=== PATIENT | female | born 1955 | race Caucasian/White ===

== ENCOUNTER 2018-03-28 02:35 | Emergency (ER) | payer OTHER ==
[~2018-03-28] VITALS: Ht 167.6 cm; Wt 108.9 kg
--- NOTE | 2018-03-28 02:51 | ED.ADGEN ---
Past History Past Medical History: Arthritis, Diabetes, Other Adult General Chief Complaint Chief Complaint ".. I just moved to [place].. I ve been lifting some boxes.. I did hurt my back a month ago.. they did a MRI at .. and said I had some disc disease... they recommended that I ge steroid injections... and follow up with PT on Fri. .. but I went to sleep in my recliner.. and when I woke up.. I could not move.. because of the pain in my low back... and Rt. leg..." HPI HPI 4 Patient is a 62 year old female who presents with acute on chronic back pain. Pt. reports an injury 1 month ago moving boxes. Pt. told she had disc problems. Pt. normally follows with Dr. Tong at for care. Pt. patient reportedly had a MRI 2 weeks ago and recommended physical therapy and steroid injections. Patient's first PT appointment is on when she is coming week. Patient has been moving into her an apartment in [facility]. Patient is localized in the Lt. lumbar sacral area there is some muscle spasms . Radiation down Lt. sciatic nerve root to Lt. gluteal.. There is radiation the pain into Lt sciatica- with straight leg lift. Pt. rates her pain as 100/10. Review of Systems Review of Systems Constitutional: Denies fever or chills [] Eyes: Denies change in visual acuity, redness, or eye pain [] HENT: Denies nasal congestion or sore throat [] Respiratory: Denies cough or shortness of breath [] Cardiovascular: No additional information not addressed in HPI [] GI: Denies abdominal pain, nausea, vomiting, bloody stools or diarrhea [] : Denies dysuria or hematuria [] Musculoskeletal: Complaints of Lt lumbar back pain and sciatica. Integument: Denies rash or skin lesions [] Neurologic: Denies headache, focal weakness or sensory changes [] Endocrine: Denies polyuria or polydipsia [] All other systems were reviewed and found to be within normal limits, except as documented in this note. Family History Family History Noncontributory Current Medications Current Medications Current Medications Medications (Trade) Dose Ordered Sig/Toi Start Time Stop Time Status Last Admin Dose Admin Ketorolac Tromethamine (Toradol 30mg Vial) 30 mg 1X ONCE 2/2/19 03:00 03/28/18 04:44 DC 03/28/18 03:20 30 MG Methylprednisolone Acetate (DEPO-Medrol IM) 40 mg 1X ONCE 03/28/18 03:00 03/28/18 04:44 DC 03/28/18 03:20 40 MG Morphine Sulfate (Morphine 10mg Syringe) 10 mg 1X ONCE 03/28/18 05:00 03/28/18 05:01 DC 03/28/18 05:08 10 MG Ondansetron HCl (Zofran) 8 mg 1X ONCE 03/28/18 07:30 03/28/18 07:35 DC 03/28/18 07:27 8 MG Orphenadrine Citrate (Norflex) 60 mg 1X ONCE 03/28/18 03:00 03/28/18 04:44 DC 03/28/18 03:19 60 MG Prochlorperazine Edisylate (Compazine) 10 mg 1X ONCE 03/28/18 05:00 03/28/18 05:01 Cancel See nursing for home meds Allergies Allergies Allergies Coded Allergies Type Severity Reaction Last Updated Verified metoprolol Allergy Intermediate 03/28/18 Yes No known drug allergies Physical Exam Physical Exam Constitutional: in acute distress, non-toxic appearance. [] HENT: Normocephalic, atraumatic, bilateral external ears normal, oropharynx moist, no oral exudates, nose normal. [] Eyes: PERRLA, EOMI, conjunctiva normal, no discharge. Glasses Neck: Normal range of motion, no tenderness, supple, no stridor. [] Cardiovascular:Heart rate regular rhythm, no murmur [] Lungs & Thorax: Bilateral breath sounds clear to auscultation [] Abdomen: Bowel sounds normal, soft, no tenderness, no masses, no pulsatile masses. Obese. No saddle loss. Skin: Warm, dry, no erythema, no rash. [] Back: Lt. lumbar muscle spasms and tenderness, no CVA tenderness. [] Extremities: Lt leg tenderness sciatic root with SLL, no cyanosis, no clubbing , ROM intact, no edema. [] Neurologic: Alert and oriented X 3, complaints of motor weakness because of severe sciatic pain in Lt. leg,, distal plantar sensory . DTR + 2 patellar. Psychologic: Affect anxious, judgement normal, mood depressed Current Patient Data Vital Signs Vital Signs Date Time Temp Pulse Resp B/P (MAP) Pulse Ox O2 Delivery O2 Flow Rate FiO2 03/28/18 03:00 98.6 87 16 99 Lab Results Laboratory Tests Test 03/28/18 03:20 White Blood Count 9.3 x10^3/uL (4.0-11.0) Red Blood Count 3.57 x10^6/uL (3.50-5.40) Hemoglobin 10.8 g/dL (12.0-15.5) L Hematocrit 32.6 % (36.0-47.0) L Mean Corpuscular Volume 92 fL (79-100) Mean Corpuscular Hemoglobin 30 pg (25-35) Mean Corpuscular Hemoglobin Concent 33 g/dL (31-37) Red Cell Distribution Width 14.4 % (11.5-14.5) Platelet Count 381 x10^3/uL (140-400) Neutrophils (%) (Auto) 63 % (31-73) Lymphocytes (%) (Auto) 24 % (24-48) Monocytes (%) (Auto) 10 % (0-9) H Eosinophils (%) (Auto) 2 % (0-3) Basophils (%) (Auto) 1 % (0-3) Neutrophils # (Auto) 5.8 x10^3uL (1.8-7.7) Lymphocytes # (Auto) 2.3 x10^3/uL (1.0-4.8) Monocytes # (Auto) 0.9 x10^3/uL (0.0-1.1) Eosinophils # (Auto) 0.2 x10^3/uL (0.0-0.7) Basophils # (Auto) 0.1 x10^3/uL (0.0-0.2) Sodium Level 135 mmol/L (136-145) L Potassium Level 4.5 mmol/L (3.5-5.1) Chloride Level 100 mmol/L (98-107) Carbon Dioxide Level 25 mmol/L (21-32) Anion Gap 10 (6-14) Blood Urea Nitrogen 21 mg/dL (7-20) H Creatinine 1.0 mg/dL (0.6-1.0) Estimated GFR (Cockcroft-Gault) 56.0 Glucose Level 121 mg/dL (70-99) H Calcium Level 8.6 mg/dL (8.5-10.1) EKG EKG [] Radiology/Procedures Radiology/Procedures CT of lumbar sacral spine shows no obvious fracture. But does have a ventral epidural discussed extrusion at L4, L5 and S1 causing severe spinal stenosis. Radiology recommended MRI imaging. See formal report.[] Course & Med Decision Making Course & Med Decision Making Pertinent Labs and Imaging studies reviewed. (See chart for details) Discussed presentation, testing and tx. plan with Dr. Matthews- Advised pt. needs to be transfer to hospital with Neuro-surgery and MRI availability. Discussed patient's presentation, testing and current treatment with transfers center at .- accepts pt in transfer to . [] Final Impression Final Impression 1. Acute on Chronic Back Pain 2. Lt. Sciatica[] 3. Severe L4, L5 S1 spinal stenosis- suspect disc extrusion. 4. DM- 121 glu 5. Anemia 10.8 Hgb. Dragon Disclaimer Dragon Disclaimer This electronic medical record was generated, in whole or in part, using a voice recognition dictation system. Dragon Disclaimer This chart was dictated in whole or in part using Voice Recognition software in a busy, high-work load, and often noisy Emergency Department environment. It may contain unintended and wholly unrecognized errors or omissions. Discharge Summary Visit Information Final Diagnosis Problems Medical Problems: (1) Back pain Status: Acute Brief Hospital Course Allergies Allergies Coded Allergies Type Severity Reaction Last Updated Verified metoprolol Allergy Intermediate 03/28/18 Yes Vital Signs Vital Signs Date Time Temp Pulse Resp B/P (MAP) Pulse Ox O2 Delivery O2 Flow Rate FiO2 03/28/18 03:00 98.6 87 16 99 Lab Results Laboratory Tests Test 03/28/18 03:20 White Blood Count 9.3 x10^3/uL (4.0-11.0) Red Blood Count 3.57 x10^6/uL (3.50-5.40) Hemoglobin 10.8 g/dL (12.0-15.5) Hematocrit 32.6 % (36.0-47.0) Mean Corpuscular Volume 92 fL (79-100) Mean Corpuscular Hemoglobin 30 pg (25-35) Mean Corpuscular Hemoglobin Concent 33 g/dL (31-37) Red Cell Distribution Width 14.4 % (11.5-14.5) Platelet Count 381 x10^3/uL (140-400) Neutrophils (%) (Auto) 63 % (31-73) Lymphocytes (%) (Auto) 24 % (24-48) Monocytes (%) (Auto) 10 % (0-9) Eosinophils (%) (Auto) 2 % (0-3) Basophils (%) (Auto) 1 % (0-3) Neutrophils # (Auto) 5.8 x10^3uL (1.8-7.7) Lymphocytes # (Auto) 2.3 x10^3/uL (1.0-4.8) Monocytes # (Auto) 0.9 x10^3/uL (0.0-1.1) Eosinophils # (Auto) 0.2 x10^3/uL (0.0-0.7) Basophils # (Auto) 0.1 x10^3/uL (0.0-0.2) Sodium Level 135 mmol/L (136-145) Potassium Level 4.5 mmol/L (3.5-5.1) Chloride Level 100 mmol/L (98-107) Carbon Dioxide Level 25 mmol/L (21-32) Anion Gap 10 (6-14) Blood Urea Nitrogen 21 mg/dL (7-20) Creatinine 1.0 mg/dL (0.6-1.0) Estimated GFR (Cockcroft-Gault) 56.0 Glucose Level 121 mg/dL (70-99) Calcium Level 8.6 mg/dL (8.5-10.1) Brief Hospital Course Ms. Black is a 62 old female who presented with acute on chronic back pain. Suspect disc extrusion L4,5, and S1[facility] Information Condition at Discharge: Improved Disposition/Orders: D/C to Another Facility Dischare Medications Current Medications Morphine Sulfate (Morphine 10mg Syringe) 10 mg 1X ONCE SQ Last administered on 03/28/18at 03:19; Admin Dose 10 MG; Start 03/28/18 at 03:00; Stop 03/28/18 at 04: 44; Status DC Methylprednisolone Acetate (DEPO-Medrol IM) 40 mg 1X ONCE IM Last administered on 03/28/18at 03:20; Admin Dose 40 MG; Start 03/28/18 at 03:00; Stop 03/28/18 at 04:44; Status DC Orphenadrine Citrate (Norflex) 60 mg 1X ONCE IM Last administered on 03/28/18at 03:19; Admin Dose 60 MG; Start 03/28/18 at 03:00; Stop 03/28/18 at 04:44; Status DC Ketorolac Tromethamine (Toradol 30mg Vial) 30 mg 1X ONCE IM Last administered on 03/28/18at 03:20; Admin Dose 30 MG; Start 03/28/18 at 03:00; Stop 03/28/18 at 04: 44; Status DC Morphine Sulfate (Morphine 10mg Syringe) 10 mg 1X ONCE IM Last administered on 03/28/18at 05:08; Admin Dose 10 MG; Start 03/28/18 at 05:00; Stop 03/28/18 at 05: 01; Status DC Prochlorperazine Edisylate (Compazine) 10 mg 1X ONCE IM Last administered on at 05:08; Admin Dose 10 MG; Start 03/28/18 at 05:00; Stop 03/28/18 at 05:02; Status DC Prochlorperazine Edisylate (Compazine) 10 mg 1X ONCE IM ; Start 03/28/18 at 05: 00; Stop 03/28/18 at 05:01; Status Cancel Ondansetron HCl (Zofran) 4 mg STK-MED ONCE .ROUTE ; Start 03/28/18 at 07:11; Stop 03/28/18 at 07:12; Status DC Ondansetron HCl (Zofran) 8 mg 1X ONCE IV Last administered on 03/28/18at 07:27; Admin Dose 8 MG; Start 03/28/18 at 07:30; Stop 03/28/18 at 07:35; Status DC BRITTANY CONRAD MD Mar 28, 2018 02:51
[2018-03-28] MEDS ORDERED: MORPHINE SULFATE 10 MG/ML SYRINGE. SQ ONE (03:00)
[2018-03-28] MEDS ORDERED: KETOROLAC 30 MG/ML VIAL. IM ONE (03:00)
[2018-03-28] MEDS ORDERED: methylPREDNISolone ACETATE 40 MG/ML VIAL. IM ONE (03:00)
[2018-03-28] MEDS ORDERED: ORPHENADRINE CITRATE 60 MG/2 ML VIAL. IM ONE (03:00)
[2018-03-28 03:33] LABS: BASO # 0.1 x10^3/uL (0.0-0.2); BASO % 1 % (0-3); EOS # 0.2 x10^3/uL (0.0-0.7); EOS % 2 % (0-3); HEMATOCRIT 32.6 % (36.0-47.0); HEMOGLOBIN 10.8 g/dL (12.0-15.5); LYMPH # 2.3 x10^3/uL (1.0-4.8); LYMPH % 24 % (24-48); MEAN CORPUSCULAR HEMOGLOBIN 30 pg (25-35); MEAN CORPUSCULAR HGB CONC 33 g/dL (31-37); MEAN CORPUSCULAR VOLUME 92 fL (79-100); MONO # 0.9 x10^3/uL (0.0-1.1); MONO % 10 % (0-9); NEUT # 5.8 x10^3uL (1.8-7.7); NEUT % 63 % (31-73); PLATELET COUNT 381 x10^3/uL (140-400); RED BLOOD COUNT 3.57 x10^6/uL (3.50-5.40); RED CELL DISTRIBUTION WIDTH 14.4 % (11.5-14.5); WHITE BLOOD COUNT 9.3 x10^3/uL (4.0-11.0)
[2018-03-28 03:40] LABS: CALCIUM 8.6 mg/dL (8.5-10.1); POTASSIUM 4.5 mmol/L (3.5-5.1)
--- NOTE | 2018-03-28 04:30 | RAD ---
CT lumbar spine without contrast PQRS statement: CT scans at this facility use dose reduction including either automated exposure control, iterative reconstructions, and /or weight based radiation dosing via mA and kV modification when appropriate to reduce radiation dose to as low as reasonably achievable. HISTORY: Lower back pain, bulging discs. TECHNIQUE: Helical multiplanar reconstructed noncontrast CT imaging of the lumbar spine was acquired. FINDINGS: Mild lumbar scoliosis. No acute fracture. No pars defect. Aorta and iliac artery calcified plaque. Paraspinal tissues unremarkable. Disc height loss and large disc bulges and facet osteophytes at the lumbar spine with severe spinal canal stenoses L3-L4 and L4-L5. There is a suspected large disc extrusion at the ventral spinal canal between L4-L5 and L5-S1 on sagittal images 31 and on the axial images which could contribute to markedly severe spinal canal stenosis, although a extradural mass or dural based mass cannot be excluded. Moderate to severe neural foraminal stenoses L3-L4 through L5-S1 due to the disc bulges and endplate and facet spurs. IMPRESSION: No acute osseous injury of the lumbar spine. Lumbar disc disease with spinal canal stenoses. Ventral epidural soft tissue density between L4-L5 and L5-S1 likely a large disc extrusion contributing to markedly severe spinal canal stenosis although a soft tissue mass cannot be excluded. This could be further assessed with MR imaging. Electronically signed by: Blane Dexter MD (03/28/2018 4:26 AM) [facility]
[2018-03-28] MEDS ORDERED: MORPHINE SULFATE 10 MG/ML SYRINGE. IM ONE (05:00)
[2018-03-28] MEDS ORDERED: PROCHLORPERAZINE 10 MG/2 ML VIAL. IM ONE ×2 (05:00)
[2018-03-28] MEDS ORDERED: ONDANSETRON PF 4 MG/2 ML VIAL. ONE (07:11)
[2018-03-28 07:12] VITALS: BP 106/70
[2018-03-28] MEDS ORDERED: ONDANSETRON PF 4 MG/2 ML VIAL. IV ONE (07:30)
== END 2018-03-28 07:45 | disposition short-term general hospital (02) ==
LOC: ER 02:35
DX: M54.42 Lumbago with sciatica, left side (principal); M48.07 Spinal stenosis, lumbosacral region; G89.29 Other chronic pain; D64.9 Anemia, unspecified; E11.9 Type 2 diabetes mellitus without complications; M19.90 Unspecified osteoarthritis, unspecified site; Z88.8 Allergy status to other drugs, medicaments and biological substances
CPT/HCPCS: 36415; 72131; 80048; 82947; 85025; 96372; 96374; 99285; J0780; J1030; J1885; J2270; J2360; J2405

== ENCOUNTER → 2018-07-24 | Outpatient (CLI) | payer OTHER | END | disposition home or self-care (01) | LOC: LAB 08:30 | PROVIDERS: ATTEND Internal Medicine Hematology & Oncology | DX: C50.411 Malignant neoplasm of upper-outer quadrant of right female breast (principal); R19.7 Diarrhea, unspecified; Z17.0 Estrogen receptor positive status [ER+] | CPT/HCPCS: 36415; 87493 ==

== ENCOUNTER 2018-08-11 22:10 | Emergency (ER) | payer OTHER ==
[~2018-08-11] VITALS: Ht 167.6 cm; Wt 108.9 kg
--- NOTE | 2018-08-11 22:44 | PHYS DOC ---
Past History Past Medical History: Arthritis, Diabetes, Other Drug Use: None Adult General Chief Complaint Chief Complaint: NAUSEA/VOMITING/DIARRHEA HPI HPI 63-year-old female presents via EMS with nausea, vomiting and diarrhea. The patient had her second round of chemotherapy 4 days ago. Today, she has had several episodes of vomiting and diarrhea. She took 8 mg of Zofran lower for 4 arrival and has had no further vomiting. She talked to her oncologist and he recommended she come to the emergency room for IV fluids and basic labs. That is why she has come to the ED. Patient is feeling a bit better at this time. Her last episode of vomiting was 2 and half hours ago. Her last diarrhea was 2 hours ago. Her recent white counts have been quite low. They were 1500 on Friday, but this is an improvement from previous. He denies fever or chills. Review of Systems Review of Systems Constitutional: Denies fever or chills. General fatigue. [] Eyes: Denies change in visual acuity, redness, or eye pain [] HENT: Denies nasal congestion or sore throat [] Respiratory: Denies cough or shortness of breath [] Cardiovascular: No additional information not addressed in HPI [] GI: Denies abdominal pain. Nausea, vomiting, diarrhea [] : Denies dysuria or hematuria [] Musculoskeletal: Denies back pain or joint pain [] Integument: Denies rash or skin lesions [] Neurologic: Denies headache, focal weakness or sensory changes [] Endocrine: Denies polyuria or polydipsia [] All other systems were reviewed and found to be within normal limits, except as documented in this note. Current Medications Current Medications Current Medications Medications (Trade) Dose Ordered Sig/Toi Start Time Stop Time Status Last Admin Dose Admin Sodium Chloride 1,000 ml @ 1,000 mls/hr 1X ONCE 08/11/18 22:45 08/11/18 23:44 Allergies Allergies Allergies Coded Allergies Type Severity Reaction Last Updated Verified metoprolol Allergy Intermediate 03/28/18 Yes Physical Exam Physical Exam Constitutional: Well developed, well nourished, no acute distress, non-toxic appearance. [] HENT: Normocephalic, atraumatic, bilateral external ears normal, oropharynx moist, no oral exudates, nose normal. [] Eyes: PERRLA, EOMI, conjunctiva normal, no discharge. [] Neck: Normal range of motion, no tenderness, supple, no stridor. [] Cardiovascular:Heart rate regular rhythm, no murmur [] Lungs & Thorax: Bilateral breath sounds clear to auscultation [] Abdomen: Bowel sounds normal, soft, no tenderness, no masses, no pulsatile masses. [] Skin: Warm, dry, no erythema, no rash. [] Back: No tenderness, no CVA tenderness. [] Extremities: No tenderness, no cyanosis, no clubbing, ROM intact, no edema. [] Neurologic: Alert and oriented X 3, normal motor function, normal sensory function, no focal deficits noted. [] Psychologic: Affect normal, judgement normal, mood normal. [] EKG EKG [] Radiology/Procedures Radiology/Procedures [] Course & Med Decision Making Course & Med Decision Making Pertinent Labs and Imaging studies reviewed. (See chart for details) The patient's labs are unremarkable except for an elevated creatinine 1.5. Her previous creatinines were normal. We have given her 2L of normal saline in the ED. the patient has not been able to give us much urine. She still continues to have some watery diarrhea. Her only able to perform a urine dip and it was positive for nitrate. I will discharge the patient with a prescription for Macrobid for 5 days. She is stable for discharge at this time. [] Dragon Disclaimer Dragon Disclaimer This electronic medical record was generated, in whole or in part, using a voice recognition dictation system. Departure Departure: Impression: Primary Impression: Nausea, vomiting, and diarrhea Disposition: 01 HOME, SELF-CARE Condition: STABLE Referrals: MARQUISE PHAM MD (PCP) Patient Instructions: Nausea and Vomiting, [id number] Scripts Nitrofurantoin Monohyd/M-Cryst (MACROBID 100 MG CAPSULE) 100 Mg Capsule 1 CAP PO BID for UTI for 5 Days, #10 CAP Prov: LINDY MARTIN DO 08/12/18 LINDY MARTIN DO Aug 11, 2018 22:44
[2018-08-11] MEDS ORDERED: IV NORMAL SALINE 1,000ML 1,000 ML IV ONE (22:45)
[2018-08-11 22:52] LABS: BASO % 1 % (0-3); EOS % 1 % (0-3); HEMATOCRIT 32.2 % (36.0-47.0); HEMOGLOBIN 10.7 g/dL (12.0-15.5); LYMPH # 1.4 x10^3/uL (1.0-4.8); LYMPH % 23 % (24-48); MEAN CORPUSCULAR HEMOGLOBIN 29 pg (25-35); MEAN CORPUSCULAR HGB CONC 33 g/dL (31-37); MEAN CORPUSCULAR VOLUME 88 fL (79-100); MONO # 0.1 x10^3/uL (0.0-1.1); MONO % 2 % (0-9); NEUT # 4.5 x10^3uL (1.8-7.7); NEUT % 73 % (31-73); PLATELET COUNT 214 x10^3/uL (140-400); RED BLOOD COUNT 3.65 x10^6/uL (3.50-5.40); RED CELL DISTRIBUTION WIDTH 13.6 % (11.5-14.5); WHITE BLOOD COUNT 6.1 x10^3/uL (4.0-11.0)
[2018-08-11 23:12] LABS: ALBUMIN 3.3 g/dL (3.4-5.0); CALCIUM 8.9 mg/dL (8.5-10.1); CREATININE 1.5 mg/dL (0.6-1.0); POTASSIUM 4.4 mmol/L (3.5-5.1); TOTAL BILIRUBIN 0.4 mg/dL (0.2-1.0); TOTAL PROTEIN 6.7 g/dL (6.4-8.2)
[2018-08-12] MEDS ORDERED: IV NORMAL SALINE 1,000ML 1,000 ML IV ONE
[2018-08-12 01:33] LABS: BILIRUBIN,URINE NEG (NEG); CLARITY,URINE HAZY; COLOR,URINE YELLOW; GLUCOSE,URINE NEG (NEG)
[2018-08-12 01:34] LABS: NITRITE,URINE POS (NEG); UROBILINOGEN,URINE 0.2 mg/dL (0.2 mg/dL)
[2018-08-12] MEDS ORDERED: NITR100C62 PO (01:39)
[2018-08-12 01:56] VITALS: BP 108/52
== END 2018-08-12 02:03 | disposition home or self-care (01) ==
LOC: ER 22:10
DX: R11.2 Nausea with vomiting, unspecified (principal); R19.7 Diarrhea, unspecified; E11.9 Type 2 diabetes mellitus without complications; M19.90 Unspecified osteoarthritis, unspecified site; Z88.8 Allergy status to other drugs, medicaments and biological substances
CPT/HCPCS: 36415; 80053; 81003; 85025; 96360; 96361; 99284-25; 99285-25; J7030

== ENCOUNTER 2018-09-27 17:58 | Emergency (ER) | payer OTHER ==
[~2018-09-27] VITALS: Ht 167.6 cm; Wt 98.4 kg
[~2018-09-27 17:58] MED LIST: NITR100C62 PO
[2018-09-27] MEDS ORDERED: IV RINGERS SOLUTION,LACTATED 1,000 ML IV SCH (18:08)
--- NOTE | 2018-09-27 18:08 | ED.ADGEN ---
Past History Past Medical History: Anemia, Arthritis, Cancer, Diabetes, Hypertension, Hypotension, Other Past Surgical History: Other Alcohol Use: None Drug Use: None Adult General Chief Complaint Chief Complaint ".. I just so weak... I ve had diarrhea, nausea and vomiting.. the last three days.. I think ... I dehydrated.. I just so weak whine I get up.. and if I get up fast I get dizzy....".. " I have not done any more chemo therapy... for now over a month.. for my two different breast cancers..." HPI HPI Patient is a 63 year old female who presents with above hx and complaints of fatigue, weakness, dizzy, malaise after three days of N/V and diarrhea. Patient denies any intake of bad food. Patient denies any specific ill contacts. Patient denies any travel. Patient is over a month out from her last chemotherapy for her breast cancers. She has had 2 courses of chemotherapy. Patient states she got so sick with the last course she did not want to continue chemotherapy. Patient reportedly has 2 different cell lines of breast cancer. Patient normally follows at for all her care both primary , oncology and chemotherapy. Patient states she becomes very dizzy when she attempts to stand up. Patient lives in her own home. Patient has 2 cats Alisha and Licorice. Review of Systems Review of Systems Constitutional: Subjective fever or chills [] Eyes: Denies change in visual acuity, redness, or eye pain [] HENT: Denies nasal congestion or sore throat [] Respiratory: Denies cough or shortness of breath [] Cardiovascular: No additional information not addressed in HPI [] GI: Generalized abdominal pain, nausea, vomiting, and diarrhea [] : Denies dysuria or hematuria [] Musculoskeletal: Denies back pain or joint pain Has.]generalized fatigue and weakness Integument: Denies rash or skin lesions [] Neurologic: Denies headache, focal weakness or sensory changes [] Endocrine: Denies polyuria or polydipsia [] All other systems were reviewed and found to be within normal limits, except as documented in this note. Family History Family History Noncontributory to current presentation Current Medications Current Medications Current Medications Medications (Trade) Dose Ordered Sig/Toi Start Time Stop Time Status Last Admin Dose Admin Folic Acid (FOLIC ACID SYRINGE for ER) 5 mg STK-MED ONCE 09/27/18 19:41 09/27/18 19:42 DC Heparin Sodium (Porcine) (Hep Lock Adult) 500 unit STK-MED ONCE 09/27/18 23:17 09/27/18 23:18 DC Lactated Ringer's 1,000 ml @ 1,000 mls/hr Q1H 09/27/18 18:08 09/27/18 19:07 DC 09/27/18 19:27 1,000 MLS/HR Magnesium Sulfate 50 ml @ 25 mls/hr 1X ONCE 09/27/18 21:45 09/27/18 23:44 UNV Metronidazole (Flagyl) 500 mg 1X ONCE 09/27/18 22:00 09/27/18 22:11 DC 09/27/18 22:07 500 MG Multivitamins/ Minerals (Infuvite Adult) 10 ml STK-MED ONCE 09/27/18 19:41 09/27/18 19:42 DC Multivitamins/ Minerals 10 ml/ Folic Acid 1 mg/ Thiamine HCl 100 mg/Lactated Ringer's 1,011.2 ml @ 1,000 mls/ hr 1X ONCE 09/27/18 18:15 09/27/18 19:15 DC 09/27/18 19:47 1,000 MLS/HR Oxycodone/ Acetaminophen (Percocet 5/325) 1 tab 1X ONCE 09/27/18 20:15 09/27/18 20:16 DC 09/27/18 20:16 1 TAB Thiamine HCl (Thiamine Vial) 200 mg STK-MED ONCE 09/27/18 19:41 09/27/18 19:42 DC See nursing for home medications Allergies Allergies Allergies Coded Allergies Type Severity Reaction Last Updated Verified metoprolol Allergy Intermediate 03/28/18 Yes Physical Exam Physical Exam Constitutional: in moderately acute distress, ill in appearance. [] HENT: Normocephalic, atraumatic, bilateral external ears normal, oropharynx dry, no oral exudates, nose normal. []Hair loss. Eyes: PERRLA, EOMI, conjunctiva pale, no discharge. Glasses. Neck: Normal range of motion, no tenderness, supple, no stridor. [] Cardiovascular: Tachycardia Heart rate regular rhythm, no murmur [] Lungs & Thorax: Bilateral breath sounds equal at apexes auscultation []Port on right Abdomen: Bowel sounds hyperactive, soft, generalized tenderness, no masses, no pulsatile masses. Obese Skin: Warm, dry, no erythema, no rash. Delay of capillary refill at 3 seconds in fingers Back: No tenderness, no CVA tenderness. [] Extremities: No tenderness, no cyanosis, no clubbing, ROM intact, no edema. [] Neurologic: Alert and oriented X 3, moves all ext. on request, no focal deficits noted. []DTR + 2 patella and brachia. Pt. ambulatory with out problems after fluid bolus- no longer dizzy on standing. Psychologic: Affect anxious, judgement normal, mood normal. [] Current Patient Data Vital Signs Vital Signs Date Time Temp Pulse Resp B/P (MAP) Pulse Ox O2 Delivery O2 Flow Rate FiO2 09/27/18 22:00 80 20 153/106 (122) 98 Room Air 09/27/18 18:05 98.5 Lab Results Laboratory Tests Test 09/27/18 18:10 09/27/18 21:12 White Blood Count 8.0 x10^3/uL (4.0-11.0) Red Blood Count 3.50 x10^6/uL (3.50-5.40) Hemoglobin 10.6 g/dL (12.0-15.5) L Hematocrit 32.4 % (36.0-47.0) L Mean Corpuscular Volume 93 fL (79-100) Mean Corpuscular Hemoglobin 30 pg (25-35) Mean Corpuscular Hemoglobin Concent 33 g/dL (31-37) Red Cell Distribution Width 15.7 % (11.5-14.5) H Platelet Count 306 x10^3/uL (140-400) Neutrophils (%) (Auto) 67 % (31-73) Lymphocytes (%) (Auto) 20 % (24-48) L Monocytes (%) (Auto) 9 % (0-9) Eosinophils (%) (Auto) 3 % (0-3) Basophils (%) (Auto) 1 % (0-3) Neutrophils # (Auto) 5.4 x10^3uL (1.8-7.7) Lymphocytes # (Auto) 1.6 x10^3/uL (1.0-4.8) Monocytes # (Auto) 0.7 x10^3/uL (0.0-1.1) Eosinophils # (Auto) 0.2 x10^3/uL (0.0-0.7) Basophils # (Auto) 0.0 x10^3/uL (0.0-0.2) Prothrombin Time 10.7 SEC (9.4-11.4) Prothrombin Time INR 1.0 (0.9-1.1) PTT 27 SEC (23-33) D-Dimer (Carmen) 0.48 mg/L (0.00-0.50) Sodium Level 138 mmol/L (136-145) Potassium Level 4.3 mmol/L (3.5-5.1) Chloride Level 103 mmol/L (98-107) Carbon Dioxide Level 27 mmol/L (21-32) Anion Gap 8 (6-14) Blood Urea Nitrogen 17 mg/dL (7-20) Creatinine 1.1 mg/dL (0.6-1.0) H Estimated GFR (Cockcroft-Gault) 50.0 Glucose Level 253 mg/dL (70-99) H Lactic Acid Level 1.9 mmol/L (0.4-2.0) Calcium Level 8.7 mg/dL (8.5-10.1) Magnesium Level 1.1 mg/dL (1.8-2.4) L Total Bilirubin 0.4 mg/dL (0.2-1.0) Direct Bilirubin 0.1 mg/dL (0.0-0.2) Aspartate Amino Transferase (AST) 16 U/L (15-37) Alanine Aminotransferase (ALT) 21 U/L (14-59) Alkaline Phosphatase 56 U/L (46-116) Creatine Kinase 30 U/L (26-192) Troponin I Quantitative < 0.017 ng/mL (0-0.055) [id number]-Type Natriuretic Peptide 22 pg/mL (0-124) Total Protein 6.6 g/dL (6.4-8.2) Albumin 3.3 g/dL (3.4-5.0) L Lipase 32 U/L (73-393) L Urine Collection Type Unknown Urine Color Yellow Urine Clarity Clear Urine pH 5.5 Urine Specific Telford 1.020 Urine Protein 30 mg/dl (NEG-TRACE) Urine Glucose (UA) >=1000 mg/dL (NEG) Urine Ketones (Stick) 15 mg/dL (NEG) Urine Blood Neg (NEG) Urine Nitrite Neg (NEG) Urine Bilirubin Neg (NEG) Urine Urobilinogen Dipstick 0.2 mg/dL (0.2 mg/dL) Urine Leukocyte Esterase Neg (NEG) Urine RBC Occ /HPF (0-2) Urine WBC 1-4 /HPF (0-4) Urine Squamous Epithelial Cells Occ /LPF Urine Bacteria Few /HPF (0-FEW) Urine Hyaline Casts Mod /HPF Urine Mucus Mod /LPF Urine Opiates Screen Pos (NEG) Urine Methadone Screen Neg (NEG) Urine Barbiturates Neg (NEG) Urine Phencyclidine Screen Neg (NEG) Urine Amphetamine/Methamphetamine Neg (NEG) Urine Benzodiazepines Screen Neg (NEG) Urine Cocaine Screen Neg (NEG) Urine Cannabinoids Screen Neg (NEG) Urine Ethyl Alcohol Neg (NEG) EKG EKG My interpretation EKG shows a sinus rhythm at 91 bpm. There are some nonspecific contour changes anterior lateral but no findings of acute STEMI with contralateral changes.[] Radiology/Procedures Radiology/Procedures [[place] [address] IMAGING REPORT Signed PATIENT: LUIS BLACK ACCOUNT: [id number] : 1955 LOCATION: ER AGE: 63 SEX: F EXAM STATUS: REG ER ORD. PHYSICIAN: BRITTANY CONRAD MD REASON: breast ca, dyspnea PROCEDURE: CHEST PA & LATERAL EXAM: 1. CHEST 2 VIEWS. 2. ABDOMEN 2 VIEWS. HISTORY: Dyspnea, breast cancer, abdominal pain, weakness. COMPARISON: None. FINDINGS: There are no confluent infiltrates. There is no pneumothorax or pleural effusion. The heart is not enlarged. A right-sided port catheter has its tip in the superior vena cava. There is no pneumoperitoneum. There are no significant air-fluid levels or distended small bowel loops. Changes of anterior abdominal wall repair are noted. There is gas distally. There are moderate degenerative changes of the lumbar spine with a mild dextroscoliosis. IMPRESSION: 1. No confluent infiltrates. 2. No evidence of obstruction. Electronically signed by: Tyler Zhao MD (09/27/2018 7:28 PM) [facility] DICTATED AND SIGNED BY: SHIRA ZHAO MD DATE: 09/27/181927 CC: BRITTANY CONRAD MD; MARQUISE PHAM MD ~][address] [address] IMAGING REPORT Signed PATIENT: LUIS BLACK ACCOUNT: [id number] : 1955 LOCATION: ER AGE: 63 SEX: F EXAM STATUS: REG ER ORD. PHYSICIAN: BRITTANY CONRAD MD REASON: Weakness, dizzy, hx breast ca PROCEDURE: CT HEAD WO CONTRAST EXAM: CT HEAD WITHOUT CONTRAST. HISTORY: Breast cancer, weakness, dizziness. TECHNIQUE: Computed tomography of the head was performed without intravenous contrast. COMPARISON: None. FINDINGS: There is no intracranial hemorrhage. Hypoattenuation within the periventricular white matter indicates mild chronic microangiopathic change. The ventricles are normal in size and position. There are changes of right maxillary sinus decompressive surgery. The temporal bones and orbits are unremarkable. A small osteoma along the outer table of the frontal bone just to the right of midline measures 8 x 3 mm. There are no suspicious calvarial lesions. A sebaceous cyst in the left parietal scalp measures 1 cm. IMPRESSION: 1. No acute intracranial findings. *One or more of the following individualized dose reduction techniques were utilized for this examination: 1. Automated exposure control. 2. Adjustment of the mA and/or kV according to patient size. 3. Use of iterative reconstruction technique. Electronically signed by: Tyler Zhao MD (09/27/2018 7:14 PM) [facility] DICTATED AND SIGNED BY: SHIRA ZHAO MD DATE: 09/27/181913 CC: BRITTANY CONRAD MD; MARQUISE PHAM MD ~ IMAGING REPORT Signed PATIENT: LUIS BLACK ACCOUNT: [id number] : 1955 LOCATION: ER AGE: 63 SEX: F EXAM STATUS: REG ER ORD. PHYSICIAN: BRITTANY CONRAD MD REASON: breast ca, abdomen pain, weakness PROCEDURE: ABDOMEN SUPINE & UPRIGHT EXAM: 1. CHEST 2 VIEWS. 2. ABDOMEN 2 VIEWS. HISTORY: Dyspnea, breast cancer, abdominal pain, weakness. COMPARISON: None. FINDINGS: There are no confluent infiltrates. There is no pneumothorax or pleural effusion. The heart is not enlarged. A right-sided port catheter has its tip in the superior vena cava. There is no pneumoperitoneum. There are no significant air-fluid levels or distended small bowel loops. Changes of anterior abdominal wall repair are noted. There is gas distally. There are moderate degenerative changes of the lumbar spine with a mild dextroscoliosis. IMPRESSION: 1. No confluent infiltrates. 2. No evidence of obstruction. Electronically signed by: Tyler Zhao MD (09/27/2018 7:28 PM) [facility] DICTATED AND SIGNED BY: SHIRA ZHAO MD DATE: 09/27/181927 CC: BRITTANY CONRAD MD; MARQUISE PHAM MD ~ Course & Med Decision Making Course & Med Decision Making Pertinent Labs and Imaging studies reviewed. (See chart for details)- Discussed options of further tx. with p.t. Pt. declines admit at this time.. States she feels so much better after fluid bolus and Mag. IV. Will cover for C-diff. Must follow up stool cultures. Return if any concerns. [] Final Impression Final Impression 1. Nausea, Vomiting and Diarrhea 2. One month out from last chemotherapy 3. Two different types of breast cancer 4. DM[] 253 5. Elevated Creat. 1.1 6. Hypomagnesium 1.1 7. Anemia 10.6 Hgb. 8. Dehydration- casts noted in urine Dragon Disclaimer Dragon Disclaimer This electronic medical record was generated, in whole or in part, using a voice recognition dictation system. Discharge Summary Visit Information Final Diagnosis Problems Medical Problems: (1) Diarrhea Status: Acute (2) Nausea & vomiting Status: Acute Brief Hospital Course Allergies Allergies Coded Allergies Type Severity Reaction Last Updated Verified metoprolol Allergy Intermediate 03/28/18 Yes Vital Signs Vital Signs Date Time Temp Pulse Resp B/P (MAP) Pulse Ox O2 Delivery O2 Flow Rate FiO2 09/27/18 22:00 80 20 153/106 (122) 98 Room Air 09/27/18 18:05 98.5 Lab Results Laboratory Tests Test 09/27/18 18:10 09/27/18 21:12 White Blood Count 8.0 x10^3/uL (4.0-11.0) Red Blood Count 3.50 x10^6/uL (3.50-5.40) Hemoglobin 10.6 g/dL (12.0-15.5) Hematocrit 32.4 % (36.0-47.0) Mean Corpuscular Volume 93 fL (79-100) Mean Corpuscular Hemoglobin 30 pg (25-35) Mean Corpuscular Hemoglobin Concent 33 g/dL (31-37) Red Cell Distribution Width 15.7 % (11.5-14.5) Platelet Count 306 x10^3/uL (140-400) Neutrophils (%) (Auto) 67 % (31-73) Lymphocytes (%) (Auto) 20 % (24-48) Monocytes (%) (Auto) 9 % (0-9) Eosinophils (%) (Auto) 3 % (0-3) Basophils (%) (Auto) 1 % (0-3) Neutrophils # (Auto) 5.4 x10^3uL (1.8-7.7) Lymphocytes # (Auto) 1.6 x10^3/uL (1.0-4.8) Monocytes # (Auto) 0.7 x10^3/uL (0.0-1.1) Eosinophils # (Auto) 0.2 x10^3/uL (0.0-0.7) Basophils # (Auto) 0.0 x10^3/uL (0.0-0.2) Prothrombin Time 10.7 SEC (9.4-11.4) Prothromb Time International Ratio 1.0 (0.9-1.1) Activated Partial Thromboplast Time 27 SEC (23-33) D-Dimer (Carmen) 0.48 mg/L (0.00-0.50) Sodium Level 138 mmol/L (136-145) Potassium Level 4.3 mmol/L (3.5-5.1) Chloride Level 103 mmol/L (98-107) Carbon Dioxide Level 27 mmol/L (21-32) Anion Gap 8 (6-14) Blood Urea Nitrogen 17 mg/dL (7-20) Creatinine 1.1 mg/dL (0.6-1.0) Estimated GFR (Cockcroft-Gault) 50.0 Glucose Level 253 mg/dL (70-99) Lactic Acid Level 1.9 mmol/L (0.4-2.0) Calcium Level 8.7 mg/dL (8.5-10.1) Magnesium Level 1.1 mg/dL (1.8-2.4) Total Bilirubin 0.4 mg/dL (0.2-1.0) Direct Bilirubin 0.1 mg/dL (0.0-0.2) Aspartate Amino Transf (AST/SGOT) 16 U/L (15-37) Alanine Aminotransferase (ALT/SGPT) 21 U/L (14-59) Alkaline Phosphatase 56 U/L (46-116) Creatine Kinase 30 U/L (26-192) Troponin I Quantitative < 0.017 ng/mL (0-0.055) [id number]-Type Natriuretic Peptide 22 pg/mL (0-124) Total Protein 6.6 g/dL (6.4-8.2) Albumin 3.3 g/dL (3.4-5.0) Lipase 32 U/L (73-393) Urine Collection Type Unknown Urine Color Yellow Urine Clarity Clear Urine pH 5.5 Urine Specific Telford 1.020 Urine Protein 30 mg/dl (NEG-TRACE) Urine Glucose (UA) >=1000 mg/dL (NEG) Urine Ketones (Stick) 15 mg/dL (NEG) Urine Blood Neg (NEG) Urine Nitrite Neg (NEG) Urine Bilirubin Neg (NEG) Urine Urobilinogen Dipstick 0.2 mg/dL (0.2 mg/dL) Urine Leukocyte Esterase Neg (NEG) Urine RBC Occ /HPF (0-2) Urine WBC 1-4 /HPF (0-4) Urine Squamous Epithelial Cells Occ /LPF Urine Bacteria Few /HPF (0-FEW) Urine Hyaline Casts Mod /HPF Urine Mucus Mod /LPF Urine Opiates Screen Pos (NEG) Urine Methadone Screen Neg (NEG) Urine Barbiturates Neg (NEG) Urine Phencyclidine Screen Neg (NEG) Urine Amphetamine/Methamphetamine Neg (NEG) Urine Benzodiazepines Screen Neg (NEG) Urine Cocaine Screen Neg (NEG) Urine Cannabinoids Screen Neg (NEG) Urine Ethyl Alcohol Neg (NEG) Brief Hospital Course Ms. Black is a 63 old female who presented with N/V/D and hx two separate lines of breast cancer. Pt. improved with hydration. Elects to be discharge home. Discharge Information Condition at Discharge: Improved, Stable Disposition/Orders: D/C to Home Dischare Medications Current Medications Lactated Ringer's 1,000 ml @ 1,000 mls/hr Q1H IV Last administered on 09/27/18at 19:27; Admin Dose 1,000 MLS/HR; Start 09/27/18 at 18:08; Stop 09/27/18 at 19:07; Status DC Multivitamins/ Minerals 10 ml/ Folic Acid 1 mg/ Thiamine HCl 100 mg/Lactated Ringer's 1,011.2 ml @ 1,000 mls/ hr 1X ONCE IV Last administered on 09/27/18at 19:47; Admin Dose 1,000 MLS/HR; Start 09/27/18 at 18:15; Stop 09/27/18 at 19:15; Status DC Thiamine HCl (Thiamine Vial) 200 mg STK-MED ONCE IV ; Start 09/27/18 at 19:41; Stop 09/27/18 at 19:42; Status DC Multivitamins/ Minerals (Infuvite Adult) 10 ml STK-MED ONCE IV ; Start 09/27/18 at 19:41; Stop 09/27/18 at 19:42; Status DC Folic Acid (FOLIC ACID SYRINGE for ER) 5 mg STK-MED ONCE IV ; Start 09/27/18 at 19:41; Stop 09/27/18 at 19:42; Status DC Oxycodone/ Acetaminophen (Percocet 5/325) 1 tab 1X ONCE PO Last administered on 09/27/18at 20:16; Admin Dose 1 TAB; Start 09/27/18 at 20:15; Stop 09/27/18 at 20:16; Status DC Magnesium Sulfate 50 ml @ 25 mls/hr 1X ONCE IV Last administered on 09/27/18at 21:45; Admin Dose 25 MLS/HR; Start 09/27/18 at 22:00; Stop 09/27/18 at 23:29; Status DC Magnesium Sulfate 50 ml @ 25 mls/hr 1X ONCE IV ; Start 09/27/18 at 21:45; Stop 09/27/18 at 23:44; Status UNV Metronidazole (Flagyl) 500 mg 1X ONCE PO Last administered on 09/27/18at 22:07; Admin Dose 500 MG; Start 09/27/18 at 22:00; Stop 09/27/18 at 22:11; Status DC Heparin Sodium (Porcine) (Hep Lock Adult) 500 unit STK-MED ONCE IV ; Start 09/27/18 at 23:17; Stop 09/27/18 at 23:18; Status DC Active Scripts Active Flagyl (Metronidazole) 500 Mg Tablet 500 Mg PO TID 10 Days Percocet 5-325 Mg Tablet (Oxycodone Hcl/Acetaminophen) 1 Each Tablet 1 Tab PO PRN Q6HRS PRN Zofran (Ondansetron Hcl) 8 Mg Tablet 8 Mg PO QIDPRN PRN Macrobid 100 Mg Capsule (Nitrofurantoin Monohyd/M-Cryst) 100 Mg Capsule 1 Cap PO BID 5 Days Dragon Disclaimer This chart was dictated in whole or in part using Voice Recognition software in a busy, high-work load, and often noisy Emergency Department environment. It may contain unintended and wholly unrecognized errors or omissions. BRITTANY CONRAD MD Sep 27, 2018 18:08
[2018-09-27] MEDS ORDERED: MVI, ADULT NO.4 WITH VIT K 10 ML, FOLIC ACID SYRINGE for ER 1 MG, THIAMINE INJ 100 MG i... IV ONE ×4 (18:15)
--- NOTE | 2018-09-27 18:28 | EKG ---
[address] [address] Test Date: 2018-09-27 Test Time: 18:27:40 Pat Name: LUIS BOWER Department: Room: Gender: F Awning Frame Maker: LAUREN : 1955 Requested By: BRITTANY CONRAD Order Number: [id number] Reading MD: Measurements Intervals [place] Rate: 91 P: 35 WI: 144 QRS: 4 QRSD: 72 T: 61 QT: 344 QTc: 425 Interpretive Statements SINUS RHYTHM QRS(T) CONTOUR ABNORMALITY CONSIDER ANTEROLATERAL MYOCARDIAL DAMAGE POSSIBLY ABNORMAL ECG RI6.01 No previous ECG available for comparison
[2018-09-27 18:43] LABS: BASO % 1 % (0-3); EOS # 0.2 x10^3/uL (0.0-0.7); EOS % 3 % (0-3); HEMATOCRIT 32.4 % (36.0-47.0); HEMOGLOBIN 10.6 g/dL (12.0-15.5); LYMPH # 1.6 x10^3/uL (1.0-4.8); LYMPH % 20 % (24-48); MEAN CORPUSCULAR HEMOGLOBIN 30 pg (25-35); MEAN CORPUSCULAR HGB CONC 33 g/dL (31-37); MEAN CORPUSCULAR VOLUME 93 fL (79-100); MONO # 0.7 x10^3/uL (0.0-1.1); MONO % 9 % (0-9); NEUT # 5.4 x10^3uL (1.8-7.7); NEUT % 67 % (31-73); PLATELET COUNT 306 x10^3/uL (140-400); RED CELL DISTRIBUTION WIDTH 15.7 % (11.5-14.5)
[2018-09-27 19:04] LABS: ALBUMIN 3.3 g/dL (3.4-5.0); CALCIUM 8.7 mg/dL (8.5-10.1); CREATININE 1.1 mg/dL (0.6-1.0); DIRECT BILIRUBIN 0.1 mg/dL (0.0-0.2); MAGNESIUM 1.1 mg/dL (1.8-2.4); POTASSIUM 4.3 mmol/L (3.5-5.1); TOTAL BILIRUBIN 0.4 mg/dL (0.2-1.0); TOTAL PROTEIN 6.6 g/dL (6.4-8.2)
--- NOTE | 2018-09-27 19:17 | RAD ---
EXAM: CT HEAD WITHOUT CONTRAST. HISTORY: Breast cancer, weakness, dizziness. TECHNIQUE: Computed tomography of the head was performed without intravenous contrast. COMPARISON: None. FINDINGS: There is no intracranial hemorrhage. Hypoattenuation within the periventricular white matter indicates mild chronic microangiopathic change. The ventricles are normal in size and position. There are changes of right maxillary sinus decompressive surgery. The temporal bones and orbits are unremarkable. A small osteoma along the outer table of the frontal bone just to the right of midline measures 8 x 3 mm. There are no suspicious calvarial lesions. A sebaceous cyst in the left parietal scalp measures 1 cm. IMPRESSION: 1. No acute intracranial findings. *One or more of the following individualized dose reduction techniques were utilized for this examination: 1. Automated exposure control. 2. Adjustment of the mA and/or kV according to patient size. 3. Use of iterative reconstruction technique. Electronically signed by: Tyler Zhao MD (09/27/2018 7:14 PM) [facility]
--- NOTE | 2018-09-27 19:31 | RAD ---
EXAM: 1. CHEST 2 VIEWS. 2. ABDOMEN 2 VIEWS. HISTORY: Dyspnea, breast cancer, abdominal pain, weakness. COMPARISON: None. FINDINGS: There are no confluent infiltrates. There is no pneumothorax or pleural effusion. The heart is not enlarged. A right-sided port catheter has its tip in the superior vena cava. There is no pneumoperitoneum. There are no significant air-fluid levels or distended small bowel loops. Changes of anterior abdominal wall repair are noted. There is gas distally. There are moderate degenerative changes of the lumbar spine with a mild dextroscoliosis. IMPRESSION: 1. No confluent infiltrates. 2. No evidence of obstruction. Electronically signed by: Tyler Zhao MD (09/27/2018 7:28 PM) [facility]
[2018-09-27] MEDS ORDERED: MVI, ADULT NO.4 WITH VIT K 10 ML VIAL IV ONE (19:41)
[2018-09-27] MEDS ORDERED: FOLIC ACID 5 MG/ML SYRINGE for ER IV ONE (19:41)
[2018-09-27] MEDS ORDERED: THIAMINE 200 MG/2 ML VIAL. IV ONE (19:41)
[2018-09-27] MEDS ORDERED: oxyCODONE/APAP 5/325 1 TAB TABLET PO ONE (20:15)
[2018-09-27 21:39] LABS: BARBITURATES NEG (NEG); BENZODIAZEPINES NEG (NEG); CANNABINOIDS NEG (NEG); COCAINE NEG (NEG); METHADONE NEG (NEG); OPIATES POS (NEG); PHENCYCLIDINE NEG (NEG)
[2018-09-27 21:43] LABS: CLARITY,URINE CLEAR; COLOR,URINE YELLOW; GLUCOSE,URINE >=1000 mg/dL (NEG)
[2018-09-27 21:44] LABS: BACTERIA,URINE FEW /HPF (0-FEW); BILIRUBIN,URINE NEG (NEG); HYALINE CASTS, URINE MOD /HPF; NITRITE,URINE NEG (NEG); RBC,URINE OCC /HPF (0-2); SQUAMOUS EPITHELIAL CELL,UR OCC /LPF; UROBILINOGEN,URINE 0.2 mg/dL (0.2 mg/dL)
[2018-09-27] MEDS ORDERED: MAGNESIUM SULFATE 2GM 50 ML IV ONE ×2 (21:45→22:00)
[2018-09-27 21:50] LABS: AMPHETAMINE/METHAMPHETAMINE NEG (NEG)
[2018-09-27 22:00] VITALS: BP 153/106
[2018-09-27] MEDS ORDERED: metroNIDAZOLE 500 MG TABLET PO ONE (22:00)
[2018-09-27] MEDS ORDERED: OXYC1TAB15 PO (22:10)
[2018-09-27] MEDS ORDERED: ONDA8TAB9 PO (22:10)
[2018-09-27] MEDS ORDERED: METR500T PO (22:10)
[2018-09-27] MEDS ORDERED: HEPARIN PF 500 UNIT/5 ML DISP.SYRIN. IV ONE (23:17)
== END 2018-09-27 23:28 | disposition home or self-care (01) ==
LOC: ER 17:58
DX: E86.0 Dehydration (principal); E11.9 Type 2 diabetes mellitus without complications; E83.42 Hypomagnesemia; D64.9 Anemia, unspecified; R79.89 Other specified abnormal findings of blood chemistry; C50.919 Malignant neoplasm of unspecified site of unspecified female breast; I10 Essential (primary) hypertension; Z88.8 Allergy status to other drugs, medicaments and biological substances
CPT/HCPCS: 36415; 70450; 71046; 74019; 80048; 80076; 80307; 81001; 82550; 83605; 83690; 83735; 83880; 84443; 84484; 85025; 85379; 85610; 85730; 87040; 87045; 87493; 93005; 96365; 96366; 96367; 99285; J3475; J7120

== ENCOUNTER 2018-11-11 17:44 | Inpatient (IN) | payer OTHER ==
[~2018-11-11] VITALS: Ht 167.6 cm; Wt 110.7 kg
[~2018-11-11 17:44] MED LIST changes: +METR500T PO; +ONDA8TAB9 PO; +OXYC1TAB15 PO
--- NOTE | 2018-11-11 17:47 | ED.ADGEN ---
Past History Past Medical History: Anemia, Arthritis, Cancer, Diabetes, Hypertension, Hypotension, Other Past Surgical History: Other Alcohol Use: None Drug Use: None Adult General Chief Complaint Chief Complaint ".. My OT person seen me... and was alarmed about my incision line of the mastectomy on the left.... the surgery was on 10/08.. I had two types of breast c ancer... I stopped the chemo.. and elected to get surgery .. .. not had any radiation .. I do have a urinary tract infection that they are treating with Bactrim since Friday...... I been having problems with low blood pressure .. so I stopped the HTN meds... " HPI HPI Patient is a 63 year old female who presents with above hx and complaints of in creased weakness, fatigue, urinary tract infection, hypotension and left breast incision line erythema. Patient underwent mastectomy on 09/24 for 2 separate types of breast cancer. Patient has past history of hypertension, diabetes, anemia, and arthritis. Patient currently following with Dr. Tong. She denies any recent travel or specific ill contacts.. No intake of bad food. Currently nauseated and did vomit twice in the emergency department. Patient stopped her chemotherapy prior to the left breast mastectomy. Has not had any radiation. Patient has stopped her hypertensive meds because recurrent hypotension. Review of Systems Review of Systems Constitutional: Denies fever or chills [] Eyes: Denies change in visual acuity, redness, or eye pain [] HENT: Denies nasal congestion or sore throat [] Respiratory: Denies cough or shortness of breath [] Cardiovascular: No additional information not addressed in HPI []complaints of hypotension GI: Denies abdominal pain, bloody stools or diarrhea []Complaints nausea, vomiting, : Denies dysuria or hematuria [] Musculoskeletal: Denies back pain or joint pain [] Integument: Complains erythema along left breast incision line[] Neurologic: Denies headache, focal weakness or sensory changes [] Endocrine: Denies polyuria or polydipsia [] All other systems were reviewed and found to be within normal limits, except as documented in this note. Family History Family History Noncontributory Current Medications Current Medications Current Medications Medications (Trade) Dose Ordered Sig/Toi Start Time Stop Time Status Last Admin Dose Admin Lactated Ringer's 1,000 ml @ 1,000 mls/hr 1X ONCE 11/11/18 19:30 11/11/18 20:29 DC 11/11/18 20:17 1,000 MLS/HR Ondansetron HCl (Zofran) 8 mg 1X ONCE 11/11/18 18:45 11/11/18 18:46 DC 11/11/18 18:35 8 MG Vancomycin HCl 1 gm/Sodium Chloride 250 ml @ 250 mls/hr 1X ONCE 11/11/18 19:30 11/11/18 20:29 UNV Allergies Allergies Allergies Coded Allergies Type Severity Reaction Last Updated Verified metoprolol Allergy Intermediate 03/28/18 Yes Physical Exam Physical Exam Constitutional: Moderate acute distress, ill appearance. [] HENT: Normocephalic, atraumatic, bilateral external ears normal, oropharynx dry, no oral exudates, nose normal. []Hair loss Eyes: PERRLA, EOMI, conjunctiva normal, no discharge. [] Glasses Neck: Normal range of motion, no tenderness, supple, no stridor. [] Cardiovascular:Heart rate regular rhythm, no murmur []PMI to the left Lungs & Thorax: Bilateral breath sounds equal at apex on auscultation []port on right chest wall. Mastectomy on left with erythema along the incision line Abdomen: Bowel sounds normal, soft, no tenderness, no masses, no pulsatile masses. [] Skin: Warm, dry, no erythema, no rash. [Poor turgor] Back: No tenderness, no CVA tenderness. [] Extremities: No tenderness, no cyanosis, no clubbing, ROM intact, no edema. [] Neurologic: Alert and oriented X 3, normal motor function, normal sensory function, no gross focal deficits noted. [] Psychologic: Affect anxious, judgement normal, mood normal. [] Current Patient Data Vital Signs Vital Signs Date Time Temp Pulse Resp B/P (MAP) Pulse Ox O2 Delivery O2 Flow Rate FiO2 11/11/18 18:47 84 20 111/64 (80) 94 Room Air 11/11/18 17:44 99.1 Lab Results Laboratory Tests Test 11/11/18 18:10 White Blood Count 11.3 x10^3/uL (4.0-11.0) H Red Blood Count 2.86 x10^6/uL (3.50-5.40) L Hemoglobin 8.9 g/dL (12.0-15.5) L Hematocrit 27.0 % (36.0-47.0) L Mean Corpuscular Volume 95 fL (79-100) Mean Corpuscular Hemoglobin 31 pg (25-35) Mean Corpuscular Hemoglobin Concent 33 g/dL (31-37) Red Cell Distribution Width 13.5 % (11.5-14.5) Platelet Count 251 x10^3/uL (140-400) Neutrophils (%) (Auto) 72 % (31-73) Lymphocytes (%) (Auto) 9 % (24-48) L Monocytes (%) (Auto) 11 % (0-9) H Eosinophils (%) (Auto) 7 % (0-3) H Basophils (%) (Auto) 0 % (0-3) Neutrophils # (Auto) 8.1 x10^3uL (1.8-7.7) H Lymphocytes # (Auto) 1.0 x10^3/uL (1.0-4.8) Monocytes # (Auto) 1.3 x10^3/uL (0.0-1.1) H Eosinophils # (Auto) 0.8 x10^3/uL (0.0-0.7) H Basophils # (Auto) 0.0 x10^3/uL (0.0-0.2) Erythrocyte Sedimentation Rate 104 (0-25) H Prothrombin Time 10.2 SEC (9.4-11.4) Prothrombin Time INR 1.0 (0.9-1.1) Activated Partial Thromboplast Time 33 SEC (23-33) D-Dimer (Carmen) 1.58 mg/L (0.00-0.50) H Sodium Level 135 mmol/L (136-145) L Potassium Level 3.8 mmol/L (3.5-5.1) Chloride Level 99 mmol/L (98-107) Carbon Dioxide Level 26 mmol/L (21-32) Anion Gap 10 (6-14) Blood Urea Nitrogen 36 mg/dL (7-20) H Creatinine 1.7 mg/dL (0.6-1.0) H Estimated GFR (Cockcroft-Gault) 30.3 Glucose Level 157 mg/dL (70-99) H Lactic Acid Level 2.0 mmol/L (0.4-2.0) Calcium Level 8.5 mg/dL (8.5-10.1) Magnesium Level 1.5 mg/dL (1.8-2.4) L Total Bilirubin 0.2 mg/dL (0.2-1.0) Direct Bilirubin 0.1 mg/dL (0.0-0.2) Aspartate Amino Transferase (AST) 11 U/L (15-37) L Alanine Aminotransferase (ALT) 12 U/L (14-59) L Alkaline Phosphatase 47 U/L (46-116) Creatine Kinase 19 U/L (26-192) L Troponin I Quantitative < 0.017 ng/mL (0-0.055) SS-Ypp-L-Type Natriuretic Peptide 830 pg/mL (0-124) H Total Protein 5.2 g/dL (6.4-8.2) L Albumin 2.3 g/dL (3.4-5.0) L Lipase 29 U/L (73-393) L EKG EKG My interpretation EKG shows a sinus rhythm at 85 bpm. There are occasional premature atrial contractions. But no findings acute STEMI of contralateral changes.[] Radiology/Procedures Radiology/Procedures My interpretation of acute abdomen film shows no acute large infiltrate in pulmonary portion. Does have port on right.[] Surgical clips on left axillary. No free air under the diaphragm. Nonspecific bowel gas pattern. Course & Med Decision Making Course & Med Decision Making Pertinent Labs and Imaging studies reviewed. (See chart for details) Discussed presentation, testing and treatment plan with Dr. Matthews. Will admit for further evaluation and treatment. We will obtain ultrasound of extremities to evaluate for DVT. We will anticoagulate with Lovenox at this time. We will defer CT until adequate hydration. Will hold Bactrim tonight due to dehydration and elevated creatinine and BUN. Start coverage with vancomycin as per pharmacy. [] Final Impression Final Impression 1. Breast cancer status post mastectomy left 10/08/2018 2. History of 2 lines of different types of breast cancer 3. Hypotension 4. Recent diagnosis of UTI 5. Increased inflammation left incision line[] 6. Nausea and Vomiting 7. Elevated d-dimer 1.58 8. Leukocytosis 11.3, Lee 11 9. Anemia hemoglobin 8.9 10. Hyponatremia 135 11.Dehydration Bun 36/Creat. 1.7 12. Hypo-magnesium 1.5 13. Malnutrition albumin 2.3 14. Diabetes- glu 155 Dragon Disclaimer Dragon Disclaimer This electronic medical record was generated, in whole or in part, using a voice recognition dictation system. Dragon Disclaimer This chart was dictated in whole or in part using Voice Recognition software in a busy, high-work load, and often noisy Emergency Department environment. It m ay contain unintended and wholly unrecognized errors or omissions. BRITTANY CONRAD MD Nov 11, 2018 17:47
[2018-11-11] MEDS ORDERED: IV RINGERS SOLUTION,LACTATED 1,000 ML IV ONE ×2 (18:15→19:30)
--- NOTE | 2018-11-11 18:22 | EKG ---
[address] [address] Test Date: 2018-11-11 Test Time: 18:16:37 Pat Name: LUIS BOWER Department: Room: Gender: F Community Support Worker: : 1955 Requested By: BRITTANY CONRAD Order Number: [id number] Reading MD: Measurements Intervals [place] Rate: 85 P: 29 OK: 152 QRS: 9 QRSD: 72 T: 31 QT: 346 QTc: 412 Interpretive Statements SINUS RHYTHM ATRIAL PREMATURE COMPLEX(ES) NO SPECIFIC ECG ABNORMALITIES RI6.01 No previous ECG available for comparison
[2018-11-11] MEDS ORDERED: ONDANSETRON PF 4 MG/2 ML VIAL. IV ONE (18:45)
[2018-11-11 18:46] LABS: BASO % 0 % (0-3); EOS # 0.8 x10^3/uL (0.0-0.7); EOS % 7 % (0-3); HEMOGLOBIN 8.9 g/dL (12.0-15.5); LYMPH % 9 % (24-48); MEAN CORPUSCULAR HEMOGLOBIN 31 pg (25-35); MEAN CORPUSCULAR HGB CONC 33 g/dL (31-37); MEAN CORPUSCULAR VOLUME 95 fL (79-100); MONO # 1.3 x10^3/uL (0.0-1.1); MONO % 11 % (0-9); NEUT # 8.1 x10^3uL (1.8-7.7); NEUT % 72 % (31-73); PLATELET COUNT 251 x10^3/uL (140-400); RED BLOOD COUNT 2.86 x10^6/uL (3.50-5.40); RED CELL DISTRIBUTION WIDTH 13.5 % (11.5-14.5); WHITE BLOOD COUNT 11.3 x10^3/uL (4.0-11.0)
[2018-11-11 19:05] LABS: ALBUMIN 2.3 g/dL (3.4-5.0); CALCIUM 8.5 mg/dL (8.5-10.1); CREATININE 1.7 mg/dL (0.6-1.0); DIRECT BILIRUBIN 0.1 mg/dL (0.0-0.2); GFR 30.3; MAGNESIUM 1.5 mg/dL (1.8-2.4); POTASSIUM 3.8 mmol/L (3.5-5.1); TOTAL BILIRUBIN 0.2 mg/dL (0.2-1.0); TOTAL PROTEIN 5.2 g/dL (6.4-8.2)
[2018-11-11] MEDS ORDERED: VANCOMYCIN 1 GM in IV NORMAL SALINE 250ML 250 ML IV ONE (19:30)
[2018-11-11] MEDS ORDERED: ACETAMINOPHEN 325 MG TABLET PO PRN (20:00)
[2018-11-11] MEDS ORDERED: VANCOMYCIN PER PHARMACY MC PRN (20:00)
[2018-11-11] MEDS ORDERED: ONDANSETRON PF 4 MG/2 ML VIAL. IV PRN (20:00)
[2018-11-11] MEDS ORDERED: ENOXAPARIN ** NOTE DOSE ** SYRINGE SQ ONE (20:00)
[2018-11-11] MEDS ORDERED: MAGNESIUM SULFATE 2GM 50 ML IV ONE (20:00)
[2018-11-11] MEDS ORDERED: VANCOMYCIN 2 GM in IV NORMAL SALINE 500ML 500 ML IV ONE (20:00)
[2018-11-11] MEDS: SMZ/TMP 800/160MG TABLET. PO SCH ×2 (20:17→23:33)
[2018-11-11] MEDS: ENOXAPARIN ** NOTE DOSE ** SYRINGE SQ SCH (20:17)
[2018-11-11] MEDS ORDERED: oxyCODONE/APAP 5/325 1 TAB TABLET PO ONE (20:45)
[2018-11-11 20:56] LABS: BARBITURATES NEG (NEG); BENZODIAZEPINES NEG (NEG); CANNABINOIDS NEG (NEG); COCAINE NEG (NEG); METHADONE NEG (NEG); OPIATES POS (NEG); PHENCYCLIDINE NEG (NEG)
[2018-11-11 20:57] LABS: AMPHETAMINE/METHAMPHETAMINE NEG (NEG)
[2018-11-11] MEDS ORDERED: ENOXAPARIN ** NOTE DOSE ** SYRINGE SQ SCH (21:00)
[2018-11-11 21:03] LABS: BILIRUBIN,URINE NEG (NEG); CLARITY,URINE HAZY; COLOR,URINE AMBER; GLUCOSE,URINE NEG (NEG)
[2018-11-11 21:04] LABS: BACTERIA,URINE FEW /HPF (0-FEW); NITRITE,URINE NEG (NEG); SQUAMOUS EPITHELIAL CELL,UR MOD /LPF; UROBILINOGEN,URINE 0.2 mg/dL (0.2 mg/dL)
[2018-11-11] MEDS ORDERED: diphenhydrAMINE 50 MG/ML VIAL IVP ONE (21:30)
[2018-11-11] MEDS ORDERED: PROCHLORPERAZINE 10 MG/2 ML VIAL. IV ONE (21:30)
--- NOTE | 2018-11-11 21:38 | NUR ---
Pharmacy Vancomycin Dosing Note S:Consulted to monitor and dose vancomycin started 11/11/18. O:LUIS BOWER is a 63 year old F with UTI, . Height: 5 feet, 6 inches Weight: 98.638991 kg Deep [place] Body Weight: 59.30 Adjusted Body Weight: 74.94 Dosing Weight: Actual Other Antibiotics: BACTRIM DS LABS: Last BUN: 36 Last Creatinine: 1.7 Creatinine Clearance: 39.56 Last WBC: 11.3 Vancomycin Dosing: Loading Dose: 2000 mg x1 Dosing Weight: Actual Target Trough: 10-20 A: Based on: Actual weight, renal function and indication P: 1. Begin Vancomycin 1500 mg IV q24h 2. Follow up Trough level on 11/13/18 at 2030 3. Pharmacy will continue to monitor, follow and adjust therapy as needed. ANGELO BERNAL, 11/11/18 [id number]
--- NOTE | 2018-11-11 23:00 | NUR ---
Pt admitted to [address] [place] [address] from ER via [facility], accompanied by EMS and nursing staff. Pt transferred from [facility] to bed x3 assist. Admission assessment completed. Health history and home medications reviewed with Pt. Pt brought in bottles. Pt had recent bilateral mastectomy on 10/08/18. Pt was healing scars to bilateral chest, redness noted to left chest. Pictures taken using [employer] system. Pt with port to right chest. VSS. Pt placed on Tele, SR noted on monitor. Lovenox for VTE. RT & PT/OT consulted. Pt refuses Flu vaccine. POC reviewed with pt, understanding verbalized. Call light within reach. Will cont to monitor.
[2018-11-11 23:19] VITALS: BP 108/72
[2018-11-11] MEDS: IV RINGERS SOLUTION,LACTATED 1,000 ML IV SCH (23:34)
[2018-11-12] MEDS: IV RINGERS SOLUTION,LACTATED 1,000 ML IV SCH ×4 (02:15→23:07)
[2018-11-12] MEDS ORDERED: ONDANSETRON ODT 4 MG TAB.RAPDIS PO PRN (02:45)
[2018-11-12] MEDS ORDERED: MELO15TA23 PO (03:08)
[2018-11-12] MEDS ORDERED: GABA300C8 PO (03:08)
[2018-11-12] MEDS ORDERED: METF10007 PO (03:08)
[2018-11-12] MEDS ORDERED: ONDA8TAB15 PO (03:08)
[2018-11-12] MEDS ORDERED: METH750T2 PO (03:08)
[2018-11-12] MEDS ORDERED: LACT1CAP12 PO (03:08)
[2018-11-12] MEDS ORDERED: DULA0.75 INJ (03:08)
[2018-11-12] MEDS ORDERED: OXYC5TAB2 PO (03:08)
[2018-11-12] MEDS ORDERED: CYAN-25 PO (03:08)
[2018-11-12] MEDS ORDERED: NAPR220C62 PO (03:08)
[2018-11-12] MEDS ORDERED: GLIP10TA13 PO (03:08)
[2018-11-12] MEDS ORDERED: SULF-143 PO (03:08)
[2018-11-12] MEDS ORDERED: DEXTROSE 50% 25 GM / 50ML DISP.SYRIN. IV PRN (05:45)
[2018-11-12 06:04] VITALS: BP 96/65
[2018-11-12 06:17] LABS: CALCIUM 8.4 mg/dL (8.5-10.1); CREATININE 1.6 mg/dL (0.6-1.0); GFR 32.5; POTASSIUM 3.5 mmol/L (3.5-5.1)
[2018-11-12 06:45] LABS: BASO % 0 % (0-3); EOS % 11 % (0-3); HEMATOCRIT 26.2 % (36.0-47.0); HEMOGLOBIN 8.7 g/dL (12.0-15.5); LYMPH # 1.4 x10^3/uL (1.0-4.8); LYMPH % 15 % (24-48); MEAN CORPUSCULAR HEMOGLOBIN 31 pg (25-35); MEAN CORPUSCULAR HGB CONC 33 g/dL (31-37); MEAN CORPUSCULAR VOLUME 95 fL (79-100); MONO % 11 % (0-9); NEUT # 5.9 x10^3uL (1.8-7.7); NEUT % 63 % (31-73); PLATELET COUNT 221 x10^3/uL (140-400); RED BLOOD COUNT 2.77 x10^6/uL (3.50-5.40); RED CELL DISTRIBUTION WIDTH 13.3 % (11.5-14.5); WHITE BLOOD COUNT 9.3 x10^3/uL (4.0-11.0)
--- NOTE | 2018-11-12 07:55 | RAD ---
EXAM: PA and Lateral Views of the Chest DATE: 11/11/2018 5:57 PM INDICATION: Weakness, redness at the incision line a left mastectomy COMPARISON: 09/27/2018 FINDINGS/ IMPRESSION: The heart is mildly enlarged. Port-A-Cath tip terminates at the mid SVC. Mediastinal and hilar contours are stable. Bilateral chest wall surgical clips including right axillary clips. No lobar consolidation. Minimal opacities in the lung bases likely atelectasis. No pleural effusion or pneumothorax. Electronically signed by: Puma Wade MD (11/12/2018 7:53 AM) [facility]
[2018-11-12] MEDS: glipiZIDE 5 MG TABLET PO SCH ×2 (08:00→17:15)
[2018-11-12] MEDS: METHOCARBAMOL 500 MG TABLET PO SCH ×4 (08:14→20:57)
[2018-11-12] MEDS: SMZ/TMP 800/160MG TABLET. PO SCH ×2 (08:14→20:57)
[2018-11-12] MEDS: GABAPENTIN 300 MG CAPSULE. PO SCH ×3 (08:14→20:57)
[2018-11-12] MEDS: CYANOCOBALAMIN (VITAMIN B-12) 1,000 MCG TABLET. PO SCH (08:15)
[2018-11-12] MEDS: ENOXAPARIN ** NOTE DOSE ** SYRINGE SQ SCH ×2 (08:15→20:57)
[2018-11-12] MEDS: LACTOBACILLUS RHAMNOSUS GG 1 CAPSULE. PO SCH ×2 (08:15→20:57)
[2018-11-12] MEDS ORDERED: MELOXICAM 15 MG TABLET. PO SCH (09:00)
[2018-11-12 11:01] VITALS: BP 101/64
[2018-11-12] MEDS: oxyCODONE IR 5 MG TABLET PO PRN ×2 (13:00→23:38)
--- NOTE | 2018-11-12 13:09 | NUR ---
NURSING NOTE PT HAS HAD 2 EPISODES OF LIQ DIARRHEA WITH HX OF CDIFF IN THE PAST PER PT. PT PUT IN ISOLATION AND LAB ORDERED PENDING COLLECTION OF NEXT STOOL SAMPLE. BRENDEN GOODMAN.
[2018-11-12 15:55] VITALS: BP 123/74
--- NOTE | 2018-11-12 17:54 | HP ---
ADMIT DATE: HISTORY OF PRESENT ILLNESS: The patient is a 63-year-old female patient who was sent to the Emergency Room as her occupational therapist saw her and was alarmed about her incision line with the mastectomy on the left side. She apparently has bilateral mastectomies on 10/08/2018. Apparently, she has 2 types of breast cancer. She was initially treated with chemotherapy. She took 2 rounds of chemotherapy, but decided to discontinue chemotherapy as she has side effects and elected to get surgery. She has had no radiation yet. She was diagnosed with urinary tract infection, for which she was started on Bactrim since last Friday. She also complained of dizziness and low blood pressure. She stopped all her hypertensive medication. She also complained of increased weakness, fatigue, hypertension and her left breast incision line has erythema. The patient follows with Dr. Tong. She denied any recent travel or specific ill contact. No intake of bad food currently. She had nausea, but did vomit twice in the Emergency Department. She has been having loose bowel movement twice a day for more than a week now. She apparently was evaluated in the Emergency Room and was found to have mild leukocytosis at 11,300. Her sed rate was elevated at 104. She was also dehydrated. Her BUN is 36, creatinine 1.7 and D-dimer was high at 1.58. Urinalysis showed that she has 11-20 wbc's and her toxic screen was positive for opiates. She has had a chest x-ray, which basically showed that the heart is mildly enlarged, Port-A-Cath tip terminates at the mid superior vena cava. Mediastinal and hilar contours are stable. Bilateral chest wall, surgical clips including right axillary clips. No lobar consolidation. Minimal opacity in the lung bases, likely atelectasis. So the patient was basically admitted with possible cellulitis of her left breast, hypertension, nausea, vomiting, elevated D-dimer, anemia, hyponatremia and dehydration. She was started on IV vancomycin 1.5 grams IV once a day and continued all her other medications. Continue with oral Bactrim-DS for her urinary tract infection. He did order venous Doppler ultrasounds of both upper and lower extremities. It was not done yet; however, the patient is already on Lovenox. PHYSICAL EXAMINATION: VITAL SIGNS: On examining her on arrival, her heart rate was 91, blood pressure was 111/64, temperature was 99.1, respiratory rate was 18 and oxygen saturation was 94%. HEAD, EYES, EARS, NOSE AND THROAT: Showed normocephalic, atraumatic. NECK: Supple. HEART: Showed normal first and second heart sounds. No gallop or murmur. CHEST: Clear to auscultation. No crepitation or rhonchi. ABDOMEN: Distended, soft, nontender. No guarding or rigidity. No organomegaly. All hernial orifice intact. Bowel sounds normal. NEUROLOGIC: She is awake, alert, responding appropriately. All cranial nerves intact. EXTREMITIES: She moves extremities without difficulty. She ambulates with a walker. SKIN: Showed that her surgical incision on the right mastectomy is healing nicely with no redness, tenderness or discharge and on the left side, there is erythema along the line of the incision and there is also some fluctuation, although the patient denied any tenderness or discharge. LABORATORY DATA: Her lab work on admission showed that her white cell count was 11,300, hemoglobin 9, hematocrit 27, MCV 95, and platelet count 251,000 with normal manual differential. Her sedimentation rate was 104. Her serum sodium was 135, potassium 3.8, chloride 99, bicarbonate 26, anion gap of 10, BUN 36, creatinine 1.7, estimated GFR was 30 mL per minute. Her glucose 157, calcium was 8.5, magnesium was 1.5. Total bilirubin, AST, ALT, alkaline phosphatase were normal. Her beta natriuretic peptide was high at 130. Total protein was 5.2, albumin 2.3. TSH was normal at 1.411. Her prothrombin time was 10.2, INR 1, aPTT was 33 and D-dimer was 1.58. Urinalysis showed the urine was seb, hazy with a pH of 5, specific gravity of 1.030. There is a trace of protein, negative for glucose, trace ketones, negative for blood, nitrite, small amount of leukocyte esterase, 3-5 rbc's, 11-20 wbc's, very few bacteria. Toxic screen was positive for opiates. Her chest x-ray showed that the heart is mildly enlarged, Port-A-Cath tip terminates into the mid superior vena cava. Mediastinal hilar contours are stable. Bilateral chest wall surgical clips Including right axillary clips. No lobar consolidation. Minimal opacity in the lung bases, likely atelectasis. No pleural effusion or pneumothorax. IMPRESSION AND PLAN: In summary, this is a 63-year-old female patient who underwent bilateral mastectomies on 10/08/2018. The surgical incision of the right mastectomy is healing nicely with no redness, tenderness. There is no fluctuation and no fluid behind it. On the left side, there is mild erythema and fluctuation, although I do not see any induration and no tenderness on palpation. Her lab work showed that she has anemia, hyponatremia, hypomagnesemia, acute kidney injury with BUN of 36, creatinine 1.7. She has severe protein-calorie malnutrition with albumin is only 2.3. Her D-dimer is high at 1.58; however, CT angio of the chest cannot be done given her impaired kidney function. We will continue with IV vancomycin. Continue with all her other medication except metformin given that her creatinine is 1.7 and once her kidney function improves, we will obviously continue the metformin. I will also hold her meloxicam and naproxen for now and once her kidney function improves, then we can consider that. CHAVO RINCON MD DR: DMO/lincoln JOB#: [id number] / [id number]
[2018-11-12 19:30] VITALS: BP 132/66
[2018-11-12] MEDS ORDERED: VANCOMYCIN 1.5 GM in IV NORMAL SALINE 500ML 500 ML IV SCH (21:00)
[2018-11-12] MEDS ORDERED: SMX/TMP 800/160MG 2TABLET STARTPACK. PO SCH (21:00)
[2018-11-12 23:47] VITALS: BP 116/70
--- NOTE | 2018-11-13 03:26 | PN ---
DATE: SUBJECTIVE: The patient is sitting comfortably in her chair, in no apparent distress. On questioning her, she denied any complaints, in particular denied any pain at the incision site of her left mastectomy. Denied any chills, rigors or fever. Did complain of dizziness and her blood pressure is low, has stopped her antihypertensive medication. Denied any nausea or vomiting. Did continue to complain of loose bowel movement. PHYSICAL EXAMINATION: GENERAL: When I examined her, she looked pale, but no jaundice, cyanosis or thyromegaly. No jugular venous distension. No lower limb edema. VITAL SIGNS: Her heart rate was 76, blood pressure was 123/74, temperature was 98.7, respiratory rate was 18 and oxygen saturation was 97%. HEAD, EYES, EARS, NOSE AND THROAT: Showed normocephalic, atraumatic. NECK: Supple. HEART: Showed normal first and second heart sounds with no gallop or murmur. CHEST: Clear to auscultation. No crepitation or rhonchi. ABDOMEN: Distended, soft, nontender. No guarding or rigidity. No organomegaly. All hernial orifice intact. Bowel sounds normal. NEUROLOGIC: She was awake, alert, responding appropriately. Cranial nerves intact. She moves extremities without difficulty. She ambulates with a walker. She has a Port-A-Cath in the left infraclavicular area. The mastectomy surgical incision on the right side is healing nicely with no redness, tenderness. There is no fluctuation. On the left side, there is some erythema along the line of the incision with fluctuation, although there is no tenderness or discharge. LABORATORY DATA: Her lab work this morning showed a white cell count 9300, hemoglobin 8.7, hematocrit 26.2, MCV 95, and platelet count 221,000. Her chemistry this morning showed a serum sodium 134, potassium 3.5, chloride 99, bicarbonate 26, anion gap of 9, BUN 33, creatinine was 1.6, estimated GFR was 33, glucose 175, calcium was 8.5. Her cultures are still pending at the time of this dictation. PLAN: My plan is to continue with IV vancomycin. Continue with Bactrim for her UTI. Continue with Lovenox for now. I will repeat her lab works tomorrow and if the creatinine is improved such that we can do a CT angio of the chest that will give us more information and rule out any pulmonary emboli and if there is any fluid collection or pus from the anterior chest wall. CHAVO RINCON MD DR: DOM/lincoln JOB#: [id number] / [id number]
[2018-11-13 06:14] VITALS: BP 104/65
[2018-11-13 06:35] LABS: ALBUMIN 1.9 g/dL (3.4-5.0); ALBUMIN/GLOBULIN RATIO 0.6 (1.0-1.7); CALCIUM 8.2 mg/dL (8.5-10.1); CREATININE 1.1 mg/dL (0.6-1.0); MAGNESIUM 1.5 mg/dL (1.8-2.4); POTASSIUM 4.3 mmol/L (3.5-5.1); TOTAL BILIRUBIN 0.1 mg/dL (0.2-1.0); TOTAL PROTEIN 5.2 g/dL (6.4-8.2)
[2018-11-13 06:42] LABS: HEMATOCRIT 25.4 % (36.0-47.0); HEMOGLOBIN 8.4 g/dL (12.0-15.5); RED BLOOD COUNT 2.7 x10^6/uL (3.50-5.40); RED CELL DISTRIBUTION WIDTH 13.5 % (11.5-14.5); WHITE BLOOD COUNT 6.7 x10^3/uL (4.0-11.0)
[2018-11-13] MEDS: GABAPENTIN 300 MG CAPSULE. PO SCH ×2 (07:56→13:14)
[2018-11-13] MEDS: LACTOBACILLUS RHAMNOSUS GG 1 CAPSULE. PO SCH (07:56)
[2018-11-13] MEDS: glipiZIDE 5 MG TABLET PO SCH ×2 (07:56→17:11)
[2018-11-13] MEDS: METHOCARBAMOL 500 MG TABLET PO SCH ×3 (07:56→17:11)
[2018-11-13] MEDS: SMZ/TMP 800/160MG TABLET. PO SCH (07:56)
[2018-11-13] MEDS: CYANOCOBALAMIN (VITAMIN B-12) 1,000 MCG TABLET. PO SCH (07:56)
[2018-11-13] MEDS: ENOXAPARIN ** NOTE DOSE ** SYRINGE SQ SCH (07:57)
[2018-11-13] MEDS ORDERED: IOHEXOL 350 MG/ML 100 ML VIAL. IV ONE (09:00)
[2018-11-13] MEDS ORDERED: [UNRECOGNIZED DRUG - OTHER] PO SCH (09:00)
--- NOTE | 2018-11-13 10:37 | RAD ---
Examination: CT angiogram of the chest HISTORY: History of elevated d-dimer, breast cancer COMPARISON: None available TECHNIQUE: Axial CT images of chest were performed with IV contrast. Coronal and sagittal 3-D MIP reformats are performed Exposure: One or more of the following individualized dose reduction techniques were utilized for this examination: 1. Automated exposure control 2. Adjustment of the mA and/or kV according to patient size 3. Use of iterative reconstruction technique FINDINGS: The visualized thyroid gland grossly appears unremarkable. The central airways are patent. No radiologically significant mediastinal lymphadenopathy. Mild coronary artery calcifications. The caliber of the aorta grossly appears unremarkable. No evidence of filling defect identified in the main pulmonary arterial trunk and right and left main pulmonary arteries. Evaluation of the lobar, distal segmental branches of the pulmonary arteries is limited due to lack of significant contrast within these branches. There is a 6 mm focal pleural thickening or nodule identified abutting the pleura in the right lower lobe of the lung. The liver demonstrates mild decreased attenuation. The visualized spleen, adrenals grossly appears unremarkable Changes of mastectomy with bilateral breast prosthesis. Moderate degenerative changes thoracic spine. IMPRESSION: 1.No evidence of central pulmonary embolism. Evaluation of the distal lobar, segmental branches limited due to lack of contrast within these branches. 2. Coronary artery calcifications. 3. 6 mm focal pleural thickening or nodule identified in the right lung base. 4. Probable mild hepatic steatosis. Electronically signed by: Ray Ralph MD (11/13/2018 10:34 AM) [place] [id number]
[2018-11-13 10:49] VITALS: BP 126/77
--- NOTE | 2018-11-13 10:53 | RAD ---
Bilateral upper extremity venous duplex study 11/13/2018 9:01 AM Clinical History: Elevated d-dimer. Chest pain. Concern for acute pulmonary embolism. History of breast cancer with bilateral mastectomy Technique: Using a combination of real time ultrasound imaging and color-flow and pulse Doppler imaging techniques along with graded compression and augmentation, duplex evaluation of the deep venous system of the both upper extremities was performed. Multiple images were obtained. Findings: There is no sonographic evidence of deep venous thrombosis involving the visualized deep venous structures of either upper extremity. Impression: No evidence of deep venous thrombosis involving either upper extremity Electronically signed by: Jack Benavides MD (11/13/2018 10:50 AM) [id number]
[2018-11-13] MEDS: IV RINGERS SOLUTION,LACTATED 1,000 ML IV SCH (11:16)
--- NOTE | 2018-11-13 11:45 | RAD ---
Bilateral lower extremity venous duplex study 11/13/2018 8:25 AM Clinical History: History of breast cancer. Elevated d-dimer. Clinical concern for pulmonary embolism. Comparison: None Technique: Using a combination of real time ultrasound imaging and color-flow and pulse Doppler imaging techniques along with graded compression and augmentation, duplex evaluation of the deep venous system of the both lower extremities was performed. Multiple images were obtained. Findings: There is no sonographic evidence of deep venous thrombosis involving the visualized deep venous structures of either lower extremity. Impression: No evidence of deep venous thrombosis involving either lower extremity Electronically signed by: Jack Benavides MD (11/13/2018 11:42 AM) [id number]
[2018-11-13] MEDS: oxyCODONE IR 5 MG TABLET PO PRN (13:18)
[2018-11-13 15:26] VITALS: BP 151/71
--- NOTE | 2018-11-13 18:12 | NUR ---
NURSING NOTES: PATIENT TRANSFERED TO [facility] PER EMS AT 1810. ALL PATIENT BELONGING SENT WITH PATIENT WELL TRANSFER PACKET.
[2018-11-14] MEDS ORDERED: ENOXAPARIN 40 MG/0.4 ML SYRINGE. SQ SCH (09:00)
== END 2018-11-13 18:10 | disposition short-term general hospital (02) | DRG 682 ==
LOC: ER 17:44 → 1 SOUTH 19:30
PROVIDERS: ADMIT Internal Medicine; ATTEND Internal Medicine
DX: N17.0 Acute kidney failure with tubular necrosis (principal); E43 Unspecified severe protein-calorie malnutrition; N39.0 Urinary tract infection, site not specified; E87.1 Hypo-osmolality and hyponatremia; C50.919 Malignant neoplasm of unspecified site of unspecified female breast; I10 Essential (primary) hypertension; E83.42 Hypomagnesemia; M19.90 Unspecified osteoarthritis, unspecified site; I95.9 Hypotension, unspecified; E11.9 Type 2 diabetes mellitus without complications; D64.9 Anemia, unspecified; E86.0 Dehydration; Z90.13 Acquired absence of bilateral breasts and nipples; Z92.21 Personal history of antineoplastic chemotherapy; Z88.8 Allergy status to other drugs, medicaments and biological substances; Z68.39 Body mass index [BMI] 39.0-39.9, adult
CPT/HCPCS: 36415; 71046; 71275; 80048; 80053; 80076; 80307; 81001; 82550; 82947; 83605; 83690; 83735; 83880; 84443; 84484; 85025; 85027; 85379; 85610; 85651; 85730; 87040; 87077; 87086; 87205; 87493; 93005; 93970; 96361; 96365; 96366; 96368; 96375; 96376; J0780; J1200; J1650; J2405; J3370; J3475; J7040; J7120; Q0162; Q9967; 97110; 97530; 99285-25

== ENCOUNTER 2019-03-02 11:25 | Emergency (ER) | payer OTHER ==
[~2019-03-02] VITALS: Ht 167.6 cm; Wt 98.4 kg
[~2019-03-02 11:25] MED LIST changes: +CYAN-25 PO; +DULA0.75 INJ; +GABA300C8 PO; +GLIP10TA13 PO; +LACT1CAP12 PO; +MELO15TA23 PO; +METF10007 PO; +METH750T2 PO; +NAPR220C62 PO; +ONDA8TAB15 PO; +OXYC5TAB2 PO; +SULF-143 PO
[2019-03-02] MEDS ORDERED: IV NORMAL SALINE 1,000ML 1,000 ML IV ONE (11:45)
[2019-03-02] MEDS ORDERED: ONDANSETRON PF 4 MG/2 ML VIAL. IVP ONE (11:45)
[2019-03-02 12:00] LABS: BASO # 0.1 x10^3/uL (0.0-0.2); BASO % 1 % (0-3); EOS # 0.2 x10^3/uL (0.0-0.7); EOS % 2 % (0-3); HEMOGLOBIN 10.5 g/dL (12.0-15.5); LYMPH # 1.7 x10^3/uL (1.0-4.8); LYMPH % 20 % (24-48); MEAN CORPUSCULAR HEMOGLOBIN 30 pg (25-35); MEAN CORPUSCULAR HGB CONC 33 g/dL (31-37); MEAN CORPUSCULAR VOLUME 91 fL (79-100); MONO # 1.2 x10^3/uL (0.0-1.1); MONO % 15 % (0-9); NEUT % 62 % (31-73); PLATELET COUNT 383 x10^3/uL (140-400); RED BLOOD COUNT 3.53 x10^6/uL (3.50-5.40); RED CELL DISTRIBUTION WIDTH 13.2 % (11.5-14.5); WHITE BLOOD COUNT 8.1 x10^3/uL (4.0-11.0)
[2019-03-02 12:07] LABS: CALCIUM 8.3 mg/dL (8.5-10.1); CREATININE 1.1 mg/dL (0.6-1.0); POTASSIUM 3.9 mmol/L (3.5-5.1)
[2019-03-02 12:13] LABS: ALBUMIN 2.8 g/dL (3.4-5.0); ALBUMIN/GLOBULIN RATIO 0.8 (1.0-1.7); TOTAL BILIRUBIN 0.3 mg/dL (0.2-1.0); TOTAL PROTEIN 6.4 g/dL (6.4-8.2)
[2019-03-02 12:22] LABS: INFLUENZA A PATIENT NEGATIVE (NEGATIVE); INFLUENZA B PATIENT NEGATIVE (NEGATIVE)
--- NOTE | 2019-03-02 12:58 | PHYS DOC ---
Past History Past Medical History: Anemia, Arthritis, Cancer, Diabetes, Hypertension, Hypotension, Other Past Surgical History: Cancer Surgery, Other Alcohol Use: None Drug Use: None Adult General Chief Complaint Chief Complaint: NAUSEA/VOMITING/DIARRHEA HPI HPI 63-year-old female presents via EMS with 1 week history of diarrhea and vomiting. The patient started with loose stools which is progressed to multiple episodes of watery diarrhea a day. She is also had intermittent vomiting last few days. She has taken Zofran but is still vomiting. She is concerned about being dehydrated. She was feeling a bit dizzy today so she called EMS. She has had no stool output the last 2 days, but continues to have intermittent vomiting and is unable to keep down liquids or solids. She denies fever or chills. She's had no changes to her medications or unusual exposures. No recent antibiotic use. Review of Systems Review of Systems Constitutional: Denies fever or chills [] Eyes: Denies change in visual acuity, redness, or eye pain [] HENT: Denies nasal congestion or sore throat [] Respiratory: Denies cough or shortness of breath [] Cardiovascular: No additional information not addressed in HPI [] GI: nausea, vomiting, diarrhea [] : Denies dysuria or hematuria [] Musculoskeletal: Denies back pain or joint pain [] Integument: Denies rash or skin lesions [] Neurologic: Denies headache, focal weakness or sensory changes [] Endocrine: Denies polyuria or polydipsia [] All other systems were reviewed and found to be within normal limits, except as documented in this note. Current Medications Current Medications Current Medications Medications (Trade) Dose Ordered Sig/Toi Start Time Stop Time Status Last Admin Dose Admin Ondansetron HCl (Zofran) 4 mg 1X ONCE 03/02/19 11:45 03/02/19 11:46 DC 03/02/19 11:45 4 MG Sodium Chloride 1,000 ml @ 1,000 mls/hr 1X ONCE 03/02/19 11:45 03/02/19 12:44 03/02/19 11:45 1,000 MLS/HR Allergies Allergies Allergies Coded Allergies Type Severity Reaction Last Updated Verified metoprolol Allergy Intermediate 03/28/18 Yes Physical Exam Physical Exam Constitutional: Well developed, obese, well nourished, no acute distress, non- toxic appearance. [] HENT: Normocephalic, atraumatic, bilateral external ears normal, oropharynx dry, no oral exudates, nose normal. [] Eyes: PERRLA, EOMI, conjunctiva normal, no discharge. [] Neck: Normal range of motion, no tenderness, supple, no stridor. [] Cardiovascular:Heart rate regular rhythm, no murmur [] Lungs & Thorax: Bilateral breath sounds clear to auscultation [] Abdomen: Bowel sounds normal, soft, no tenderness, no masses, no pulsatile masses. [] Skin: Warm, dry, no erythema, no rash. [] Back: No tenderness, no CVA tenderness. [] Extremities: No tenderness, no cyanosis, no clubbing, ROM intact, no edema. [] Neurologic: Alert and oriented X 3, normal motor function, normal sensory function, no focal deficits noted. [] Psychologic: Affect normal, judgement normal, mood normal. [] Current Patient Data Vital Signs Vital Signs Date Time Temp Pulse Resp B/P (MAP) Pulse Ox O2 Delivery O2 Flow Rate FiO2 03/02/19 11:53 98.3 75 16 98 Room Air Lab Results Laboratory Tests Test 03/02/19 11:45 White Blood Count 8.1 x10^3/uL (4.0-11.0) Red Blood Count 3.53 x10^6/uL (3.50-5.40) Hemoglobin 10.5 g/dL (12.0-15.5) L Hematocrit 32.0 % (36.0-47.0) L Mean Corpuscular Volume 91 fL (79-100) Mean Corpuscular Hemoglobin 30 pg (25-35) Mean Corpuscular Hemoglobin Concent 33 g/dL (31-37) Red Cell Distribution Width 13.2 % (11.5-14.5) Platelet Count 383 x10^3/uL (140-400) Neutrophils (%) (Auto) 62 % (31-73) Lymphocytes (%) (Auto) 20 % (24-48) L Monocytes (%) (Auto) 15 % (0-9) H Eosinophils (%) (Auto) 2 % (0-3) Basophils (%) (Auto) 1 % (0-3) Neutrophils # (Auto) 5.0 x10^3uL (1.8-7.7) Lymphocytes # (Auto) 1.7 x10^3/uL (1.0-4.8) Monocytes # (Auto) 1.2 x10^3/uL (0.0-1.1) H Eosinophils # (Auto) 0.2 x10^3/uL (0.0-0.7) Basophils # (Auto) 0.1 x10^3/uL (0.0-0.2) Sodium Level 139 mmol/L (136-145) Potassium Level 3.9 mmol/L (3.5-5.1) Chloride Level 104 mmol/L (98-107) Carbon Dioxide Level 27 mmol/L (21-32) Anion Gap 8 (6-14) Blood Urea Nitrogen 10 mg/dL (7-20) Creatinine 1.1 mg/dL (0.6-1.0) H Estimated GFR (Cockcroft-Gault) 50.0 BUN/Creatinine Ratio 9 (6-20) Glucose Level 157 mg/dL (70-99) H Calcium Level 8.3 mg/dL (8.5-10.1) L Total Bilirubin 0.3 mg/dL (0.2-1.0) Aspartate Amino Transferase (AST) 10 U/L (15-37) L Alanine Aminotransferase (ALT) 14 U/L (14-59) Alkaline Phosphatase 57 U/L (46-116) Total Protein 6.4 g/dL (6.4-8.2) Albumin 2.8 g/dL (3.4-5.0) L Albumin/Globulin Ratio 0.8 (1.0-1.7) L EKG EKG [] Radiology/Procedures Radiology/Procedures [] Course & Med Decision Making Course & Med Decision Making Pertinent Labs and Imaging studies reviewed. (See chart for details) The patient's labs are unremarkable. Urinalysis is suggestive of UTI. I will t reat her with some gram of Rocephin IV and 5 days of Macrobid. She was given IV fluids and Zofran. She's had no vomiting or diarrhea in the ER. I will discharge her with a prescription for Zofran and Compazine. She is stable for discharge at this time. [] Dragon Disclaimer Dragon Disclaimer This electronic medical record was generated, in whole or in part, using a voice recognition dictation system. Departure Departure: Impression: Primary Impression: Nausea & vomiting Additional Impression: UTI (urinary tract infection) Disposition: HOME, SELF-CARE Condition: STABLE Referrals: MARQUISE PHAM MD (PCP) Patient Instructions: Nausea and Vomiting, [id number], Urinary Tract Infection, Ooyq-hl-Ghvm Scripts Nitrofurantoin Monohyd/M-Cryst (MACROBID 100 MG CAPSULE) 100 Mg Capsule 1 CAP PO BID for UTI for 5 Days, #10 CAP 0 Refills Prov: LINDY MARTIN DO 03/02/19 Prochlorperazine Maleate (Compazine) 10 Mg Tablet 1 TAB PO Q6HRS PRN for VOMITING for 7 Days, #28 TAB 0 Refills Prov: LINDY MARTIN DO 03/02/19 Ondansetron (ONDANSETRON ODT) 4 Mg Tab.rapdis 1 TAB PO PRN Q6-8HRS PRN for VOMITING, #16 TAB Prov: LINDY MARTIN DO 03/02/19 Problem Qualifiers Primary Impression: Nausea & vomiting Vomiting type: unspecified Vomiting Intractability: non-intractable Qualified Codes: R11.2 - Nausea with vomiting, unspecified Additional Impression: UTI (urinary tract infection) Urinary tract infection type: acute cystitis Hematuria presence: with he maturia Qualified Codes: N30.01 - Acute cystitis with hematuria LINDY MARTIN DO Mar 02, 2019 12:58
[2019-03-02 14:09] LABS: COLOR,URINE YELLOW
[2019-03-02 14:10] LABS: BACTERIA,URINE FEW /HPF (0-FEW); BILIRUBIN,URINE NEG (NEG); CLARITY,URINE HAZY; GLUCOSE,URINE NEG (NEG); NITRITE,URINE NEG (NEG); RBC,URINE 0 /HPF (0-2); SQUAMOUS EPITHELIAL CELL,UR OCC /LPF; UROBILINOGEN,URINE 0.2 mg/dL (0.2 mg/dL)
[2019-03-02] MEDS ORDERED: ONDA4TAB12 PO (14:38)
[2019-03-02] MEDS ORDERED: PROC10TA57 PO (14:38)
[2019-03-02] MEDS ORDERED: NITR100C62 PO (14:38)
[2019-03-02] MEDS ORDERED: IV NORMAL SALINE 50ML 50 ML ONE (14:41)
[2019-03-02] MEDS ORDERED: cefTRIAXone SODIUM 1 GM VIAL ONE (14:41)
[2019-03-02 15:21] VITALS: BP 126/75
== END 2019-03-02 15:39 | disposition home or self-care (01) ==
LOC: ER 11:30
DX: N30.01 Acute cystitis with hematuria (principal); R19.7 Diarrhea, unspecified; R11.2 Nausea with vomiting, unspecified; M19.90 Unspecified osteoarthritis, unspecified site; E11.9 Type 2 diabetes mellitus without complications; I10 Essential (primary) hypertension; Z86.2 Personal history of diseases of the blood and blood-forming organs and certain disorders involving the immune mechanism; Z88.8 Allergy status to other drugs, medicaments and biological substances
CPT/HCPCS: 36415; 80053; 81001; 85025; 87086; 87804; 96361; 96365; 96375; 99285; J0696; J2405; J7030

== ENCOUNTER 2019-03-15 11:16 | Emergency (ER) | payer OTHER ==
[~2019-03-15] VITALS: Ht 167.6 cm; Wt 98.4 kg
[~2019-03-15 11:16] MED LIST changes: +ONDA4TAB12 PO; +PROC10TA57 PO
--- NOTE | 2019-03-15 11:39 | PHYS DOC ---
Past History Past Medical History: Anemia, Arthritis, Cancer, Diabetes, Hypertension, Hypotension, Other Past Surgical History: Cancer Surgery, Other Alcohol Use: None Drug Use: None Adult General Chief Complaint Chief Complaint: MECHANICAL FALL HPI HPI 63-year-old female presents after fall. She was walking and stepped on ice and fell onto her buttocks and left hand. She currently has pain in her tailbone and her left shoulder. She also has a headache that seems to be worse and she got a bit nauseated at home. She called the nurse line and they advised she come to the emergency room. She has not had any vomiting. She has an existing bulging disc in her lumbar and is concerned the fall may have made it worse. She denies numbness, tingling, altered sensation. She is able to walk. She is able to move her left shoulder around. Review of Systems Review of Systems Constitutional: Denies fever or chills [] Eyes: Denies change in visual acuity, redness, or eye pain [] HENT: Denies nasal congestion or sore throat [] Respiratory: Denies cough or shortness of breath [] Cardiovascular: No additional information not addressed in HPI [] GI: Denies abdominal pain, nausea, vomiting, bloody stools or diarrhea [] : Denies dysuria or hematuria [] Musculoskeletal: Coccyx pain, left shoulder pain[] Integument: Denies rash or skin lesions [] Neurologic: Headache. Denies focal weakness or sensory changes [] Endocrine: Denies polyuria or polydipsia [] All other systems were reviewed and found to be within normal limits, except as documented in this note. Allergies Allergies Allergies Coded Allergies Type Severity Reaction Last Updated Verified metoprolol Allergy Intermediate 03/28/18 Yes Physical Exam Physical Exam Constitutional: Well developed, obese, well nourished, no acute distress, non- toxic appearance. [] HENT: Normocephalic, atraumatic, bilateral external ears normal, oropharynx moist, no oral exudates, nose normal. [] Eyes: PERRLA, EOMI, conjunctiva normal, no discharge. [] Neck: Normal range of motion, no tenderness, supple, no stridor. [] Cardiovascular:Heart rate regular rhythm, no murmur [] Lungs & Thorax: Bilateral breath sounds clear to auscultation [] Abdomen: Bowel sounds normal, soft, no tenderness, no masses, no pulsatile masses. [] Skin: Warm, dry, no erythema, no rash. [] Back: Tenderness over her tailbone.[] Extremities: Left lateral shoulder tenderness. Range of motion normal.[] Neurologic: Alert and oriented X 3, normal motor function, normal sensory function, no focal deficits noted. [] Psychologic: Affect normal, judgement normal, mood normal. [] EKG EKG [] Radiology/Procedures Radiology/Procedures [] Impressions: Examination: CT HEAD WO CONTRAST History: Pain, fall Comparison/Correlation: 09/27/2018 CT head without contrast Findings: Axial images of the head were obtained without contrast. Sagittal and coronal reformatted images were provided. Mild atrophy is present. No intracranial hemorrhage, midline shift, or mass effect. Ventricles are normal size. No intracranial hemorrhage, midline shift, or mass effect. The left frontal deep white matter low-attenuation lesion which may represent an old lacunar infarct measuring up to 0.7 cm x 0.6 cm present. Small sebaceous cyst or other benign process involving the left posterior vertex within the scalp noted. Bilateral coloboma noted. Bony structures are unremarkable. Impression: No intracranial hemorrhage. Left anterior frontal deep white matter low attenuation which probably represents a lacunar infarct since the prior exam of 09/27/2018. Further evaluation with MRI without contrast on a nonemergent basis if clinically warranted. PQRS Compliance Statement: One or more of the following individualized dose reduction techniques were utilized for this examination: 1. Automated exposure control 2. Adjustment of the mA and/or kV according to patient size 3. Use of iterative reconstruction technique Electronically signed by: Aman Mckeon MD (03/15/2019 12:12 PM) [facility] DICTATED AND SIGNED BY: AMAN MCKEON MD DATE: 03/15/19 1212 CC: LINDY MARTIN DO; MARQUISE PHAM MD ~ SACRUM COCCYX 3V 03/15/2019 11:34 AM INDICATION: Fall COMPARISON: None available. TECHNIQUE: 4 views of the sacrum and coccyx are provided. FINDINGS/ IMPRESSION: 1. There is minimal angulation of the inner cortex of the S5 vertebral level to be congenital. Findings correspond with area pain, further evaluation with CT could be of benefit as acute nondisplaced fracture may have similar appearance. 2. Postoperative changes from suspected hernia repair are present. 3. Mild to moderate lumbar spondylosis with minimal retrolisthesis of L3 on L4. Electronically signed by: Femi Young MD (03/15/2019 12:24 PM) [facility] DICTATED AND SIGNED BY: FEMI YOUNG MD DATE: 03/15/19 1224 SHOULDER 2+V LEFT 03/15/2019 11:34 AM INDICATION: Fall COMPARISON: None available. TECHNIQUE: 3 views of the left shoulder are provided. FINDINGS/ IMPRESSION: Mild joint space narrowing involving the left glenohumeral joint. No acute fracture or dislocation. Degenerative changes are noted along the greater tuberosity, possibly associated with long-term rotator cuff arthropathy. Electronically signed by: Femi Young MD (03/15/2019 12:22 PM) [facility] DICTATED AND SIGNED BY: FEMI YOUNG MD DATE: 03/15/19 1222 CC: LINDY MARTIN DO; MARQUISE PHAM MD ~ Course & Med Decision Making Course & Med Decision Making Pertinent Labs and Imaging studies reviewed. (See chart for details) [] Dragon Disclaimer Dragon Disclaimer This electronic medical record was generated, in whole or in part, using a voice recognition dictation system. Departure Departure: Impression: Primary Impression: Fall due to ice or snow Disposition: 01 HOME, SELF-CARE Condition: STABLE Referrals: MARQUISE PHAM MD (PCP) Patient Instructions: Contusion, [id number]-zn-[id number] Problem Qualifiers Primary Impression: Fall due to ice or snow Encounter type: initial encounter Qualified Codes: W00.9XXA - Unspecified fall due to ice and snow, initial encounter LINDY MARTIN DO Mar 15, 2019 11:39
--- NOTE | 2019-03-15 12:15 | RAD ---
Examination: CT HEAD WO CONTRAST History: Pain, fall Comparison/Correlation: 09/27/2018 CT head without contrast Findings: Axial images of the head were obtained without contrast. Sagittal and coronal reformatted images were provided. Mild atrophy is present. No intracranial hemorrhage, midline shift, or mass effect. Ventricles are normal size. No intracranial hemorrhage, midline shift, or mass effect. The left frontal deep white matter low-attenuation lesion which may represent an old lacunar infarct measuring up to 0.7 cm x 0.6 cm present. Small sebaceous cyst or other benign process involving the left posterior vertex within the scalp noted. Bilateral coloboma noted. Bony structures are unremarkable. Impression: No intracranial hemorrhage. Left anterior frontal deep white matter low attenuation which probably represents a lacunar infarct since the prior exam of 09/27/2018. Further evaluation with MRI without contrast on a nonemergent basis if clinically warranted. PQRS Compliance Statement: One or more of the following individualized dose reduction techniques were utilized for this examination: 1. Automated exposure control 2. Adjustment of the mA and/or kV according to patient size 3. Use of iterative reconstruction technique Electronically signed by: Aman Mir MD (03/15/2019 12:12 PM) [facility]
--- NOTE | 2019-03-15 12:25 | RAD ---
SHOULDER 2+V LEFT 03/15/2019 11:34 AM INDICATION: Fall COMPARISON: None available. TECHNIQUE: 3 views of the left shoulder are provided. FINDINGS/ IMPRESSION: Mild joint space narrowing involving the left glenohumeral joint. No acute fracture or dislocation. Degenerative changes are noted along the greater tuberosity, possibly associated with long-term rotator cuff arthropathy. Electronically signed by: Angelica Nelson MD (03/15/2019 12:22 PM) [id number]
--- NOTE | 2019-03-15 12:26 | RAD ---
SACRUM COCCYX 3V 03/15/2019 11:34 AM INDICATION: Fall COMPARISON: None available. TECHNIQUE: 4 views of the sacrum and coccyx are provided. FINDINGS/ IMPRESSION: 1. There is minimal angulation of the inner cortex of the S5 vertebral level to be congenital. Findings correspond with area pain, further evaluation with CT could be of benefit as acute nondisplaced fracture may have similar appearance. 2. Postoperative changes from suspected hernia repair are present. 3. Mild to moderate lumbar spondylosis with minimal retrolisthesis of L3 on L4. Electronically signed by: Angelica Nelson MD (03/15/2019 12:24 PM) [email or web address]
[2019-03-15 13:10] VITALS: BP 138/78
== END 2019-03-15 13:10 | disposition home or self-care (01) ==
LOC: ER 11:16
DX: M53.3 Sacrococcygeal disorders, not elsewhere classified (principal); M25.512 Pain in left shoulder; R51 Headache; M19.90 Unspecified osteoarthritis, unspecified site; E11.9 Type 2 diabetes mellitus without complications; I10 Essential (primary) hypertension; Z86.2 Personal history of diseases of the blood and blood-forming organs and certain disorders involving the immune mechanism; Z88.8 Allergy status to other drugs, medicaments and biological substances; W00.0XXA Fall on same level due to ice and snow, initial encounter; Y93.01 Activity, walking, marching and hiking; Y92.89 Other specified places as the place of occurrence of the external cause; Y99.8 Other external cause status
CPT/HCPCS: 70450; 72220; 73030; 99284

== ENCOUNTER 2019-09-12 09:13 | Emergency (ER) | payer MEDICARE ==
[~2019-09-12] VITALS: Ht 167.6 cm; Wt 119.8 kg
[2019-09-12 09:15] VITALS: BP 161/78
--- NOTE | 2019-09-12 09:18 | PHYS DOC ---
Past History Past Medical History: Anemia, Arthritis, Cancer, Diabetes, Hypertension, Hypotension, Other Past Surgical History: Cancer Surgery, Other Additional Past Surgical Histo: bilat mastectomy Alcohol Use: None Drug Use: None General Adult EDM: Chief Complaint: MECHANICAL FALL HPI: HPI: Patient is a [age] year old [sex] who presents with [] Review of Systems: Review of Systems: Constitutional: Denies fever or chills Eyes: Denies redness or eye pain HENT: Denies nasal congestion or sore throat Respiratory: Denies cough or shortness of breath Cardiovascular: Denies chest pain or palpitations GI: Denies abdominal pain, nausea, or vomiting : Denies dysuria or hematuria Musculoskeletal: Denies back pain or joint pain Integument: Denies rash or skin lesions Neurologic: Denies headache, focal weakness or sensory changes Complete systems were reviewed and found to be within normal limits, except as documented in this note. Allergies: Allergies: Allergies Coded Allergies Type Severity Reaction Last Updated Verified metoprolol Allergy Intermediate 03/15/19 Yes Physical Exam: PE: Constitutional: Well developed, well nourished, no acute distress, non-toxic appearance HENT: Normocephalic, atraumatic, oropharynx moist Eyes: PERRL, EOMI, conjunctiva normal, no discharge Neck: Normal range of motion, no tenderness, supple Cardiovascular: Heart rate normal, regular rhythm Lungs & Thorax: Bilateral breath sounds clear to auscultation, no wheezing Abdomen: Soft, no tenderness Skin: Warm, dry, no erythema, no rash Back: No tenderness, no CVA tenderness Extremities: No tenderness, ROM intact, no edema Neurologic: Alert and oriented X 3, normal motor function, normal sensory function, no focal deficits noted Psychologic: Affect normal, judgment normal EKG: EKG: [] Radiology/Procedures: Radiology/Procedures: [] Course & Med Decision Making: Course & Med Decision Making Pertinent Labs and Imaging studies reviewed. (See chart for details) Patient stable for discharge with outpatient follow-up with PCP. Discussed findings and plan with patient and family, who acknowledge understanding and agreement. Barb Disclaimer: Barb Disclaimer: This electronic medical record was generated, in whole or in part, using a voice recognition dictation system. Departure Departure: Impression: Primary Impression: Fall Qualified Codes: W19.XXXA - Unspecified fall, initial encounter Additional Impressions: Left shoulder strain Qualified Codes: S46.912A - Strain of unspecified muscle, fascia and tendon at shoulder and upper arm level, left arm, initial encounter Sacral contusion Qualified Codes: S30.0XXA - Contusion of lower back and pelvis, initial encounter Disposition: 01 HOME/RESIDENCE PRIOR TO ADM Condition: STABLE Referrals: MARQUISE PHAM MD (PCP) DEUCE VILLAR MD Patient Instructions: Back Pain, Adult, [id number], Contusion, [id number]-wh-[id number], Fall Prevention and Home Safety, Ktcy-cl-[id number], Shoulder Sprain Additional Instructions: ICE area 20 min on then leave off for next 20 min. Repeat several times daily for next few days. Take your previously prescribed medications as needed for pain Justification of Admission: Justification of Admission: Justification of Admission Dx: N/A VANESA MCKEON DO Sep 12, 2019 09:18
--- NOTE | 2019-09-12 10:38 | RAD ---
Examination: SACRUM COCCYX 3V, LUMBAR SPINE 2-3V History: Reason: Lower back and tailbone pain s/p fall 09/10/19 / Spl. Instructions: / History: Comparison/Correlation: 03/15/2019 Findings: A total of 3 frontal and lateral views of the lumbar spine are provided. Frontal and lateral views of the sacrum and coccyx were provided. Alignment of the visualized spine is within normal limits. Severe disc space narrowing at L4-5 with vacuum phenomenon is present. Moderate disc space narrowing at L3-4 with endplate sclerosis and spurring. Sacrum and coccyx are unremarkable with no fracture or bone destruction. Sacroiliac joints are unremarkable. Impression: No acute fracture. Degenerative change of the lower lumbar spine. Electronically signed by: Aman Mir MD (09/12/2019 10:35 AM) [id number]
--- NOTE | 2019-09-12 10:40 | RAD ---
Examination: SHOULDER 2+V LEFT History: Reason: left shoulder pain s/p fall 09/10/19 / Spl. Instructions: / History: Comparison/Correlation: 03/15/2019 left Shoulder x-ray exam Findings: 3 images of the left shoulder were obtained. There are no his relationships unremarkable. Mild degenerative changes about the acromion. No displaced fracture or bone destruction. Surgical clips are present in the lateral left lower thoracic level. Impression: No acute fracture. No significant degenerative change for the patient's age. Electronically signed by: Aman Mir MD (09/12/2019 10:37 AM) [id number]
== END 2019-09-12 10:33 | disposition home or self-care (01) ==
LOC: ER 09:13
DX: S46.912A Strain of unspecified muscle, fascia and tendon at shoulder and upper arm level, left arm, initial encounter (principal); S30.0XXA Contusion of lower back and pelvis, initial encounter; E11.9 Type 2 diabetes mellitus without complications; I10 Essential (primary) hypertension; Z86.2 Personal history of diseases of the blood and blood-forming organs and certain disorders involving the immune mechanism; Z88.8 Allergy status to other drugs, medicaments and biological substances; W01.0XXA Fall on same level from slipping, tripping and stumbling without subsequent striking against object, initial encounter; Y93.89 Activity, other specified; Y92.513 Shop (commercial) as the place of occurrence of the external cause; Y99.8 Other external cause status
CPT/HCPCS: 72100; 72220; 73030; 99284